=== PATIENT | male | born 1960 | race Caucasian/White ===

== ENCOUNTER → 2017-12-16 | Day surgery (SDC) | payer OTHER ==
[2017-12-13 09:18] LABS: BASOPHILS % 0.3 % (0.0-1.0); EOSINOPHILS # (AUTO) 0.2 (0.0-0.4); EOSINOPHILS % 2.9 % (0.0-6.0); HEMATOCRIT 41.6 % (38.2-49.6); HEMOGLOBIN 14.8 g/dL (14.0-18.0); LYMPHOCYTES # (AUTO) 1.1 (1.0-3.2); LYMPHOCYTES % 17.3 % (18.0-39.1); MEAN CORPUSCULAR HEMOGLOBIN 31.3 pg (28-32); MEAN CORPUSCULAR HGB CONC 35.6 g/dL (31-35); MEAN CORPUSCULAR VOLUME 87.9 fL (81-99); MONOCYTES # (AUTO) 0.6 (0.2-0.8); MONOCYTES % 9.2 % (4.4-11.3); NEUTROPHILS # (AUTO) 4.3 (2.1-6.9); NEUTROPHILS % 70.1 % (38.7-80.0); PLATELET COUNT 177 x10e3/uL (140-360); RED BLOOD COUNT 4.73 x10e6/uL (4.3-5.7); RED CELL DISTRIBUTION WIDTH 12.9 % (11.7-14.4)
[~2017-12-16] MED LIST: ALDACTONE25 MG PO; ASPIRIN325 MG PO; BREO INH; BYETTA5 MCG/0.02 INJ; CARVEDILOL6.25 MG PO; CLARITIN10 MG PO; FENTANYL CITRATE/PF 100MCG/2 ML INJ ONE; FISH OIL 1,0001 EAC2 PO; FLAXSEED OIL1000 MG PO; FLOMAX0.4 MG PO; FLONASE; FUROSEMIDE40 MG PO; GLIPIZIDE ER5 MG PO; GLUCOSAMINE CO1 EACH PO; GLUCOSAMINE-MS1 EAC3 PO; HYOSCYAMINE SULFATE 0.5 MG/ML AMP ONE; ISOSORBIDE PO; METFORMIN HCL850 MG PO; MIDAZOLAM HCL 2 MG/2 ML VIAL ONE; MSM1000 M1 PO; MULTI-VITAMIN1 EACH PO; PANTOPRAZOLE SO40 MG PO; PRAVASTATIN SOD20 MG PO; PROAIR HFA INH8.5 GM INH; PROBIOTIC PO; RAMIPRIL10 MG PO; SINGULAIR10 MG PO; SYMBICORT 16010.2 GM INH; TRIAMCINOLONE A15 G1 TOP; VITAMIN B COMP1 EAC1 PO; VITAMIN C1000 M2 PO; VITAMIN E1000 UNIT PO; XOPENEX HFA15 GM INH; [UNRECOGNIZED DRUG - OTHER] TOP
--- NOTE | 2017-12-16 10:44 | Operative Report ---
DATE OF PROCEDURE: December 16, 2017 REFERRING PHYSICIAN: Dr. Genoveva Law PROCEDURES PERFORMED 1. Esophagogastroduodenoscopy with biopsies. 2. Colonoscopy with polypectomy. INDICATIONS FOR EGD: History of Garcia's esophagus. INDICATIONS FOR COLONOSCOPY: Colorectal cancer screening, personal history of multiple colon polyps, suboptimal prep on previous colonoscopy. MEDICATION: Patient was done under MAC. Please see anesthesiologist's note. PROCEDURE: With the patient in the left lateral decubitus position, the flexible fiberoptic Olympus gastroscope was introduced into the esophagus under direct visualization without any difficulty. Tongues of velvety red mucosa were noted to extend proximally from the GE junction and biopsies were obtained. The scope was then advanced with ease into the stomach. Mucosa overlying the antrum and the body revealed some patchy intense erythema and low-grade to moderate edema, and biopsies were obtained and sent to stain for H. pylori. Pylorus appeared to be of normal contour and shape. It was intubated with ease. The scope was advanced all the way to the 2nd portion of the duodenum. The scope was then withdrawn slowly. Mucosa overlying the proximal 2nd portion and the duodenal bulb appeared to be within normal limits. The scope was then withdrawn back into the stomach and retroflexed. The mucosa overlying the fundus and the cardia appeared to be within normal limits. The scope was then straightened out. It was subsequently withdrawn. Patient tolerated the procedure well. IMPRESSION 1. Garcia's esophagus, biopsies obtained. 2. Gastritis, biopsies obtained and sent to stain for Helicobacter pylori. PLAN: Follow up histology. Continue Protonix 40 mg 1 p.o. q.a.m. a.c. Patient was then turned around. After adequate lubrication of the anal canal, a flexible fiberoptic Olympus colonoscope was inserted into the rectum with ease and advanced all the way to the cecum. An approximately 8 mm sessile polyp was snared from the cecum and polypectomy site was hemoclipped. One polyp was hot biopsied from the ascending colon. One polyp was snared from the transverse colon. One polyp was snared from the descending colon. Some diverticular disease was noted in the sigmoid colon. A total of 15 polyps were removed in the sigmoid colon, 10 by hot biopsy forceps and 5 by snare electrocautery. Three polyps were hot biopsied from the rectum. The scope was then retroflexed into the distal rectum and small internal hemorrhoids were noted, none of which was actively bleeding. The scope was then straightened out. It was subsequently withdrawn. Patient tolerated the procedure well. IMPRESSION 1. Cecal polyp, snared, site prophylactically hemoclipped. 2. Ascending colon polyp, hot biopsied. 3. Transverse colon polyps, snared. 4. Descending colon polyp, snared. 5. Sigmoid colon polyps times 15, 10 hot biopsied and 5 snared. 6. Diverticulosis. 7. Rectal polyps times 3, hot biopsied. 8. Internal hemorrhoids, none actively bleeding. PLAN: Follow up histology. Initiate high-fiber and low-fat diet. Initiate high-fiber supplement. Patient might meet the criteria for hyper-polyposis syndrome. A followup colonoscopy is indicated in 1 year. Job#: [id number] RI cc:GENOVEVA LAW MD
--- OUTSIDE RECORDS SUMMARY | 2017-12-17 12:52 | XMS REPORT | Clinical Summary ---
Author Author [facility] Organization [facility] Address Unknown Phone Unavailable Care Team Providers Care Hemstitching Machine Operator Name Role Phone Christofer Law MD PCP Allergies Active Allergy Reactions Severity Noted Date Comments Empagliflozin Hives High 10/18/2016 Current Medications Prescription Sig. Disp. Refills Start End Date Status Date tamsulosin (FLOMAX) 0.4 Take 0.4 mg by mouth 2 08/21/19 Active mg capsule,extended (two) times a day. 17 release 24hr montelukast (SINGULAIR) Take 10 mg by mouth 07/31/19 Active 10 mg tablet nightly. 17 ONETOUCH ULTRA TEST strip 08/21/19 Active test strips 17 glipiZIDE (GLUCOTROL) 5 Take by mouth daily. 09/09/19 Active MG 24 hr tablet 17 PROAIR HFA 90 Inhale 1 puff every 4 10/04/19 Active mcg/actuation inhaler (four) hours as needed. 17 BYETTA 10 mcg/dose(250 10 mcg 2 (two) times a 10/05/19 Active mcg/mL) 2.4 mL pen day before meals. 17 injector fluticasone-vilanterol Inhale 1 inhalations Active (BREO ELLIPTA) 200-25 daily. mcg/dose blister with device powder for inhalation loratadine (CLARITIN) 10 Take 10 mg by mouth Active mg tablet daily. fluticasone (FLONASE) 50 2 sprays by Each Nare Active mcg/actuation nasal spray route daily. aspirin 325 MG tablet Take 325 mg by mouth Active nightly. pantoprazole (PROTONIX) Take 40 mg by mouth Active 40 MG EC tablet daily. levalbuterol (XOPENEX) INAHLE CONTENTS OF 1 0 11/07/19 Active 1.25 mg/3 mL nebulizer VIAL VIA NEBULIZER Q 6 H 17 solution PRN ramipril (ALTACE) 10 MG TAKE 1 CAPSULE DAILY 90 capsule 3 03/18/20 Active capsule 17 omega-3 acid ethyl esters Take 1 g by mouth 2 (two) Active (LOVAZA) 1 gram capsule times a day. epINEPHrine (EPIPEN) 0.3 0.3 mg as needed. 07/16/19 Active mg/0.3 mL auto-injector 18 furosemide (LASIX) 40 mg Take 1 tablet (40 mg 180 tablet 3 10/24/19 Active tablet total) by mouth 2 (two) 18 times a day. multivitamin with Take 1 tablet by mouth Active minerals tablet daily. B complex with C#20-folic Take by mouth daily. Active acid 1 mg capsule vitamin E 1000 UNIT Take 1,000 Units by mouth Active capsule daily. flaxseed oil oil Active Saccharomyces boulardii Take 250 mg by mouth 2 Active (FLORASTOR) 250 mg (two) times a day. capsule gluc oconnell/chondro oconnell A/vit Take by mouth. Active C/Mn (GLUCOSAMINE 1500 COMPLEX ORAL) carvedilol (COREG) 12.5 Take 1 tablet (12.5 mg 180 tablet 3 11/07/19 11/07/19 Active MG tablet total) by mouth 2 (two) 18 19 times a day. spironolactone Take 1 tablet (25 mg 90 tablet 3 11/13/19 11/13/19 Active (ALDACTONE) 25 MG tablet total) by mouth daily. 18 19 pravastatin (PRAVACHOL) Take 1 tablet (20 mg 90 tablet 3 12/10/19 Active 20 MG tablet total) by mouth nightly. 18 pravastatin (PRAVACHOL) TAKE 1 TABLET DAILY 90 tablet 2 09/11/1902/24 Discontin 20 MG tablet 17 17 ued carvedilol (COREG) 6.25 08/21/19 02/19/20 Discontin MG tablet 17 17 ued metFORMIN XR Take 750 mg by mouth 3 07/16/19 10/24/19 Discontin (GLUCOPHAGE-XR) 750 mg 24 (three) times a day. 17 18 ued hr tablet BD INSULIN PEN NEEDLE UF 08/23/19 10/23/19 Discontin MINI 31 gauge x 3/16" 17 18 ued needle ramipril (ALTACE) 10 MG 09/19/19 03/17/20 Discontin capsule 17 17 ued isosorbide mononitrate 10/03/19 12/31/19 Discontin (IMDUR) 120 MG 24 hr 17 17 ued tablet FLUTICASONE/VILANTEROL Inhale. 02/08/20 Discontin (BREO ELLIPTA INHL) 17 ued isosorbide mononitrate TAKE 3 TABLETS DAILY 270 tablet 1 01/01/20 Discontin (IMDUR) 120 MG 24 hr 17 17 ued tablet triamcinolone Apply topically 2 (two) 10/17/19 Discontin aceton-silicones 0.1 % times a day. 18 ued kit carvedilol (COREG) 6.25 TAKE 1 TABLET DAILY WITH 90 tablet 4 02/19/20 10/23/19 Discontin MG tablet FOOD 17 18 ued furosemide (LASIX) 40 mg Take 1 tablet (40 mg 90 tablet 0 05/06/20 07/15/19 Discontin tablet total) by mouth daily. 17 18 ued pravastatin (PRAVACHOL) TAKE 1 TABLET DAILY 90 tablet 2 05/16/20 Discontin 20 MG tablet 17 18 ued multivitamin with Take 1 tablet by mouth 10/24/19 Discontin minerals tablet daily. 18 ued isosorbide mononitrate TAKE 3 TABLETS DAILY 270 tablet 3 07/02/20 Discontin (IMDUR) 120 MG 24 hr 17 18 ued tablet furosemide (LASIX) 40 mg TAKE 1 TABLET DAILY 90 tablet 2 07/15/19 Discontin tablet 18 18 ued carvedilol (COREG) 6.25 Take 6.25 mg by mouth 2 11/07/19 Discontin MG tablet (two) times a day with 18 ued meals. furosemide (LASIX) 40 mg Take 40 mg by mouth 2 10/24/19 Discontin tablet (two) times a day. 18 ued ISOSORBIDE MONONITRATE Take 30 mg by mouth 10/24/19 Discontin ORAL daily. 18 ued ramipril (ALTACE) 10 MG Take 10 mg by mouth 10/24/19 Discontin capsule daily. 18 ued pravastatin (PRAVACHOL) Take 20 mg by mouth 12/10/19 Discontin 20 MG tablet nightly. 18 ued acetaminophen (TYLENOL) Take 2 tablets (650 mg 15 tablet 0 10/24/19 11/23/19 325 MG tablet total) by mouth every 6 18 18 (six) hours as needed for moderate pain for up to 30 days. minocycline Take 1 capsule (100 mg 14 capsule 0 10/24/19 10/31/19 (MINOCIN,DYNACIN) 100 MG total) by mouth 2 (two) 18 18 capsule times a day for 7 days. metFORMIN XR Take 1 tablet (750 mg 60 tablet 0 10/24/19 11/23/19 (GLUCOPHAGE-XR) 750 mg 24 total) by mouth 2 (two) 18 18 hr tablet times a day with meals for 30 days. potassium 99 mg tablet Take 198 mg by mouth 12/13/19 Discontin daily. 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 Paroxysmal atrial fibrillation 10/16/2016 Type 2 diabetes mellitus 10/16/2016 Heart disease 10/16/2016 Essential hypertension 10/16/2016 Obstructive sleep apnea 10/16/2016 Myocardial infarction 10/16/2016 Encounters Date Type Specialty Care Team Description 12/12/2017 Office Visit Cardiology Genesis Hansen MD Paroxysmal atrial fibrillation (Primary Dx); Cardiomyopathy, unspecified type; Biventricular heart failure; Dilated cardiomyopathy; Chronic systolic heart failure; 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 12/12/2017 Orders Only Cardiology Antwan Shah MD 12/09/2017 Refill Cardiology Jai Gar Med Refill 12/06/2017 Orders Only Cardiology Jai Gar Cardiomyopathy, unspecified type (Primary Dx) 11/27/2017 Telephone Cardiology Jai Gar Results 11/12/2017 Refill Cardiology Jai Gar Results 11/06/2017 Office Visit Cardiology Genesis Hansen MD Paroxysmal atrial fibrillation (Primary Dx); Congestive heart failure, unspecified congestive heart failure chronicity, unspecified congestive heart failure type; Cardiomyopathy, unspecified type; 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; Essential hypertension; Overweight 10/23/2017 Refill Cardiology Jai Gar Med Refill 10/22/2017 Hospital Cardiology Genesis Hansen MD Pre- procedure lab exam; - Encounter Ken Adam, Coronary artery disease 10/23/2017 MD involving cowlitz coronary artery of cowlitz heart without angina pectoris; Cardiomyopathy, unspecified type 10/22/2017 Procedure Pass Procedural Cardiology 10/22/2017 Surgery Procedural Cardiology Ken Adam, Ep aicd implant single MD dual bi vent [44841 (CPT )] 10/22/2017 Orders Only Cardiology Jai Gar 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 (Primary Dx) 10/22/2017 Procedure Pass Procedural Cardiology 10/22/2017 Surgery Procedural Cardiology Genesis Hansen MD Cv right and left heart cath selective angiography lv [16355 (CPT )] 10/21/2017 Orders Only Procedural Cardiology Vivian Sumner Paroxysmal atrial fibrillation 10/16/2017 Office Visit Cardiology Genesis Hansen MD Paroxysmal atrial fibrillation (Primary Dx); Pre-procedure lab exam; 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; Cardiomyopathy, unspecified type; Overweight; Pure hypercholesterolemia 10/07/2017 Office Visit Cardiology Mariusz Langston V., Paroxysmal atrial MD fibrillation (Primary Dx); Essential hypertension; ST elevation myocardial infarction involving left anterior descending (LAD) coronary artery; Biventricular heart failure 09/26/2017 Orders Only Cardiology Jai Gar Cardiomyopathy, unspecified type (Primary Dx) 09/11/2017 Office Visit Cardiology Genesis Hansen MD Heart disease (Primary Dx); Paroxysmal atrial fibrillation; Essential hypertension; Mixed hyperlipidemia; 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 08/05/2017 Orders Only Cardiology Genesis Hansen MD 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 (Primary Dx); Congestive heart failure, unspecified congestive heart failure chronicity, unspecified congestive heart failure type 07/15/2017 Refill Cardiology Genesis Hansen MD Med Refill 06/28/2017 Refill Cardiology Genesis Hansen MD Med Refill 06/07/2017 Hospital Procedural Cardiology Genesis Hansen MD Cardiomyopathy, Encounter unspecified type 06/03/2017 Transcribe Cardiology Genesis Hansen MD Orders 06/03/2017 Orders Only Cardiology Genesis Hansen MD 05/29/2017 Office Visit Cardiology Genesis Hansen MD Paroxysmal atrial fibrillation (Primary Dx); Cardiomyopathy, unspecified type; Heart disease; Biventricular heart failure; Type 2 diabetes mellitus without complication, without long-term current use of insulin; Essential hypertension 05/15/2017 Refill Cardiology Genesis Hansen MD Med Refill 05/06/2017 Refill Cardiology Cong Jai David Med Refill 03/17/2017 Refill Cardiology Genesis Hansen MD Med Refill 02/18/2017 Refill Cardiology Genesis Hansen MD Med Refill 02/07/2017 Office Visit Cardiology Genesis Hansen MD Paroxysmal atrial fibrillation (Primary Dx); Essential hypertension 12/30/2016 Refill Cardiology Genesis Hansen MD Med Refill after 12/16/2016 Family History Medical History Relation Name Comments Diabetes Brother Heart disease Brother Hypertension Brother Diabetes Father Heart disease Father Hypertension Father Hypertension Mother Relation Name Status Comments Brother Father Mother Social History Tobacco Use Types Packs/Day Years Used Date Former Smoker Cigarettes 1 Smokeless Tobacco: Former Chew Quit: User 10/18/2013 Tobacco Cessation: Ready to Quit: Yes Alcohol Use Drinks/Week oz/Week Comments Yes Sex Assigned at Date Recorded Not on file Last Filed Vital Signs Vital Sign Reading Time Taken Blood Pressure 117/61 12/12/2017 12:40 PM CDT Pulse 73 12/12/2017 12:40 PM CDT Temperature 35.7 C (96.2 F) 10/23/2017 7:27 AM CDT Respiratory Rate 18 10/23/2017 9:14 AM CDT Oxygen Saturation 98% 10/23/2017 9:11 AM CDT Inhaled Oxygen - - Concentration Weight 110 kg (242 lb) 12/12/2017 12:37 PM CDT Height 185.4 cm (6' 1") 12/12/2017 12:37 PM CDT Body Mass Index 31.93 12/12/2017 12:37 PM CDT Plan of Treatment Health Maintenance Due Date Last Done Comments DIABETIC FOOT EXAM 1969 DIABETIC RETINAL EYE EXAM 1969 URINE MICROALBUMIN 1969 COLON CANCER SCREENING 2009 SHINGRIX VACCINE (#1) 2009 INFLUENZA VACCINE 02/05/2018 Implants Implanted Type Area Radiation Control Technician Device Expiration Model / Identifier Date Serial / Lot Lead [place] Df4 - [id number] - Cardiac N/A: N/A BSC GUIDANT CRM 02/27/2019 [id number] / [id number] Pacing CHYNA [id number] / Implanted: Qty: 1 on 10/22/2017 by Leads or [id number] Ken Adam MD Electrodes or Accessorie s 52cm Ingevity Mri Active Fixation Cardiac N/A: N/A [place] 09/26/2019 7741 / Pacing Lead - [id number] - [id number] Pacing SCIENTIFIC- CRM [id number] / Implanted: Qty: 1 on 10/22/2017 by Leads or [id number] Ken Adam MD Electrodes or Accessorie s Transvenous Icd Vigilant Juan Nails Df4 Defibrilla N/A: N/A [place] D233 / - [id number] ICD SCIENTIFIC- CRM / Implanted: Qty: 1 on 10/22/2017 by Devices Ken Adam MD Procedures Procedure Name Priority Date/Time Associated Diagnosis Comments ECHOCARDIOGRAM 2D Routine 12/12/2017 Cardiomyopathy, Results for this COMPLETE W MMODE SPECTRAL 5:11 PM CDT unspecified type procedure are in the COLOR DOPPLER (84537) results section. CV PACEMAKER DEFIB ILR Routine 12/12/2017 INTERROGATION 12:00 AM CDT CV PACEMAKER DEFIB ILR Routine 11/06/2017 INTERROGATION 12:00 AM CDT EP AICD IMPLANT SINGLE Routine 10/22/2017 Results for this DUAL BI VENT 7:16 PM CDT procedure are in the results section. CV RIGHT AND LEFT HEART Routine 10/22/2017 Pre-procedure lab exam Results for this CATH SELECTIVE CORONARY 11:12 AM CDT Coronary artery disease procedure are in the LV involving cowlitz coronary results section. artery of cowlitz heart without angina pectoris Cardiomyopathy, unspecified type CV HOLTER MONITOR 48 HOUR Routine 10/16/2017 Paroxysmal atrial Results for this 1:49 PM CDT fibrillation procedure are in the results section. CV STRESS TEST NUCLEAR Routine 10/11/2017 Cardiomyopathy, Results for this CARDIO 4:11 PM CDT unspecified type procedure are in the results section. ECHOCARDIOGRAM 2D Routine 08/13/2017 Coronary artery disease Results for this COMPLETE W MMODE SPECTRAL 10:42 AM INFORMATION MANAGEMENT MANAGER involving cowlitz coronary procedure are in the COLOR DOPPLER (79683) artery of cowlitz heart results section. without angina pectoris Congestive heart failure, unspecified congestive heart failure chronicity, unspecified congestive heart failure type ECHOCARDIOGRAM 2D Routine 05/06/2017 Paroxysmal atrial Results for this COMPLETE W MMODE SPECTRAL 10:45 AM CDT fibrillation procedure are in the COLOR DOPPLER (54147) Essential hypertension results section. after 12/16/2016 Results * Echocardiogram complete w contrast and 3D if needed (12/12/2017 5:11 PM) Specimen Performing Laboratory [facility] [address] [place] [address] Narrative [facility] Echocardiography Report Pat.Name:FELA BENZ LPat.ID:[id number] St.Date: 12/12/2017 Refer.MD:GENESIS HANSEN MD Exam Time: 4:05:00 PMStudy Type:Routine Echo Height:73inWeight:242lb BSA: 2.34 m2 DOBAge:1960 ,57Y Sex: MALEBP: 117/61 HR:86 bpm Sonogrphr: LIZZ Colbert FASE Pat. Stat.:OutpatientRoom:[place] [address] Study Status:Final Echo Event ID:[id number] Order ID:[id number] Reason for Study:Cardiomyopathy, Coronary Artery Disease Procedures:2D Echo, Colorflow Doppler, Intravenous Definity Contrast Race:C SUMMARY: RV size is mildly enlarged. RV systolic function is mild to moderately depressed. LV size is moderately enlarged. LV EF is severely depressed. Wall motion abnormalities present. FINDINGS: LV: LV size is moderately enlarged. LV EF is severely depressed. EstimatedEF is 25-29%. RV: RV size is mildly enlarged. A pacemaker wire is seen in the RV.RV systolic function is mild to moderately depressed. LA: LA volume is severely enlarged. RA: RA volume is enlarged. A pacemaker wire is seen. AO: Aortic root diameter is normal. JACKELIN: No pericardial effusion. AV: Focal calcification of AV leaflets. MV: Dilated annulus with poor coaptation. Mild to moderate functionalmitral regurgitation. PV: No structural PV abnormalities noted. TV: No structural TV abnormalities noted. Mild tricuspid regurgitation Ralph: Diastolic dysfunction Grade II (Moderate): Impaired relaxationwith elevated LV filling pressures. Other:Estimated PA systolic pressure is 48 mmHg, assuming a mean RAPof 5 mmHg. MEASUREMENTS: 2D Parasternal [place] LVOT 2.1 cmLA Ds 5 cm LVIDd6.2 cmIndex 2.6 cm/m Ao An2.1 cm LVIDs5.6 cmAo Rtd 3.6 cm Index1.5 cm/m LV%fs 12.5 % LV Elfz250.1 g(122-174) IVSd 0.9 cmRWT 0.3 LVPWd1.1 cm LA Sng Plane LA Area 32.1 cm2(8.8-23.4) LA Vol 126.9 ml Index54.2 ml/m LA LngAx 6.8 cm WALL MOTION: RESTING WALL MOTION: Mid Inferolateral, Mid Anterolateral, Apical Lateral smith are akinetic.Basal Anterior, Basal Anteroseptal, Basal Inferoseptal, Basal Inferior, Basal Inferolateral, Basal Anterolateral, Mid Anterior, Mid Anteroseptal, Mid Inferoseptal, Mid Inferior, Apical Anterior, Apical Septal, Apical Inferior, Apical smith are hypokinetic. Wall Index=2.2 Signed 12/12/2017 05:47 PM Joshua Crawford MD Procedure Note Interface, Radiology Results In - 12/12/2017 5:47 PM CDT [facility] Echocardiography Report Pat.Name: FELA BENZ Pat.ID: [id number] St.Date: 12/12/2017 Refer.MD: GENESIS HANSEN MD Exam Time: 4:05:00 PM Study Type:Routine Echo Height: 73in Weight: 242lb BSA: 2.34 m2 Age: 9 1960,57Y Sex: MALE BP: 117/61 HR: 86 bpm Sonogrphr: LIZZ Colbert FASE Pat. Stat.:Outpatient Room: [place] [address] Study Status:Final Echo Event ID:[id number] Order ID: [id number] Reason for Study:Cardiomyopathy, Coronary Artery Disease Procedures:2D Echo, Colorflow Doppler, Intravenous Definity Contrast Race: C SUMMARY: RV size is mildly enlarged. RV systolic function is mild to moderately depressed. LV size is moderately enlarged. LV EF is severely depressed. Wall motion abnormalities present. FINDINGS: LV: LV size is moderately enlarged. LV EF is severely depressed. Estimated EF is 25-29%. RV: RV size is mildly enlarged. A pacemaker wire is seen in the RV. RV systolic function is mild to moderately depressed. LA: LA volume is severely enlarged. RA: RA volume is enlarged. A pacemaker wire is seen. AO: Aortic root diameter is normal. JACKELIN: No pericardial effusion. AV: Focal calcification of AV leaflets. MV: Dilated annulus with poor coaptation. Mild to moderate functional mitral regurgitation. PV: No structural PV abnormalities noted. TV: No structural TV abnormalities noted. Mild tricuspid regurgitation Ralph: Diastolic dysfunction Grade II (Moderate): Impaired relaxation with elevated LV filling pressures. Other: Estimated PA systolic pressure is 48 mmHg, assuming a mean RAP of 5 mmHg. MEASUREMENTS: 2D Parasternal Long [place] LVOT 2.1 cm LA Ds 5 cm LVIDd 6.2 cm Index 2.6 cm/m Ao An 2.1 cm LVIDs 5.6 cm Ao Rtd 3.6 cm Index 1.5 cm/m LV%fs 12.5 % LV Mass 278.1 g (122-174) IVSd 0.9 cm RWT 0.3 LVPWd 1.1 cm LA Sng Plane LA Area 32.1 cm2 (8.8-23.4) LA Vol 126.9 ml Index 54.2 ml/m LA LngAx 6.8 cm WALL MOTION: RESTING WALL MOTION: Mid Inferolateral, Mid Anterolateral, Apical Lateral smith are akinetic. Basal Anterior, Basal Anteroseptal, Basal Inferoseptal, Basal Inferior, Basal Inferolateral, Basal Anterolateral, Mid Anterior, Mid Anteroseptal, Mid Inferoseptal, Mid Inferior, Apical Anterior, Apical Septal, Apical Inferior, Apical smith are hypokinetic. Wall Index=2.2 Signed 12/12/2017 05:47 PM Joshua Crawford MD * ECG 12 lead (12/12/2017 12:45 PM) Only the most recent of 7 results within the time period is included. Component Value Ref Range Ventricular rate 74 Atrial rate 74 OR interval 144 QRSD interval 108 QT interval 404 QTC interval 448 P axis 1 161 QRS axis 1 -26 T wave axis 62 EKG impression Unusual P axis, possible ectopic atrial rhythm with occasional premature ventricular complexes-Inferior infarct , age undetermined-Abnormal ECG-In automated comparison with ECG of 06-NOV-2017 16:12,-Ectopic atrial rhythm has replaced Sinus rhythm-QRS axis shifted left- Specimen Performing Laboratory [facility] [address] [place] [address] * CV pacemaker defib or ilr interrogation (12/12/2017) * Basic metabolic panel (12/09/2017 8:23 AM) Only the most recent of 7 results within the time period is included. Component Value Ref Range Glucose 130 65 - 139 mg/dL Comment: Non-fasting reference interval BUN, whole blood 31 (H) 7 - 25 mg/dL Creatinine 1.33 0.70 - 1.33 mg/dL Comment: For patients >49 years of age, the reference limit for Creatinine is approximately 13% higher for people identified as -Moroccan. EGFR Non-Afr. Moroccan 59 (L) > OR=60 mL/min/1.73m2 EGFR 68 > OR=60 mL/min/1.73m2 BUN/creatinine ratio 23 (H) 6 - 22 (calc) Sodium 138 135 - 146 mmol/L Potassium 4.0 3.5 - 5.3 mmol/L Chloride 95 (L) 98 - 110 mmol/L CO2 30 20 - 31 mmol/L Calcium 10.0 8.6 - 10.3 mg/dL Specimen Performing Laboratory [facility] Narrative FASTING:NO FASTING: NO * B natriuretic peptide (11/07/2017 9:17 AM) Only the most recent of 3 results within the time period is included. Component Value Ref Range BNP 172 (H) <100 pg/mL Comment: BNP levels increase with age in the general population with the highest values seen in individuals greater than 75 years of age. Reference: J. Am. Sujata. Cardiol. 2002; 40:976-982. Specimen Performing Laboratory [facility] Narrative FASTING:NO FASTING: NO * CV pacemaker defib or ilr interrogation (11/06/2017) * POC glucose (10/23/2017 7:24 AM) Only the most recent of 4 results within the time period is included. Component Value Ref Range POC glucose 163 (H) 65 - 99 mg/dL Comment: [facility] Notified RN Meter ID: [id number] Inside Sales Account Representative: Maame Carrion Specimen Performing Laboratory [facility] DEPARTMENT OF PATHOLOGY AND GENOMIC MEDICINE [address] [place] [id number] * XR Chest 1 Vw Portable (10/23/2017 1:00 AM) Only the most recent of 2 results within the time period is included. Specimen Performing Laboratory [facility] [address] [place] [address] Narrative EXAMINATION:XR CHEST 1 VW PORTABLE CLINICAL HISTORY:Pneumothorax COMPARISON:10/22/2017 IMPRESSION: Cardiomediastinal silhouette is within normal limits. Left-sided cardiac device is unchanged. Mild vascular congestion/edema. No effusions or pneumothorax. No acute osseous abnormalities. [facility]-[id number] Procedure Note Interface, Radiology Results Incoming - 10/23/2017 1:07 AM CDT EXAMINATION: XR CHEST 1 VW PORTABLE CLINICAL HISTORY: Pneumothorax COMPARISON: 10/22/2017 IMPRESSION: Cardiomediastinal silhouette is within normal limits. Left-sided cardiac device is unchanged. Mild vascular congestion/edema. No effusions or pneumothorax. No acute osseous abnormalities. [facility]-[id number] * Cv electrophysiology procedure (10/22/2017 7:16 PM) Specimen Performing Laboratory [facility] [address] [place] [address] Narrative ELECTROPHYSIOLOGY SERVICE OPERATIVE REPORT PROCEDURE: OPERATION PERFORMED: Implantation dual chamber ICD Patient had moderate sedation administered in the form of Versed and Fentanyl. I was present during the induction and completion of anesthesia. A total of 60 minutes of sedation time Grafts/Implants: Implant Name Type Inv. Item Serial No. Radiation Control Technician Lot No. LRB No. Used Action LEAD RELIANCE GORE DF4 - [id number] Cardiac Pacing Leads or Electrodes or Accessories LEAD RELIANCE GORE DF4 [id number] [facility] [employer]UIDANT CRM CHYNA [id number] N/A 1 Implanted 52CM INGEVITY MRI ACTIVE FIXATION PACING LEAD - [id number] Cardiac Pacing Leads or Electrodes or Accessories 52CM INGEVITY MRI ACTIVE FIXATION PACING LEAD [id number] [employer] [facility] [id number] N/A 1 Implanted TRANSVENOUS ICD VIGILANT EL DR FULLER4 - [id number] Defibrillator ICD Devices TRANSVENOUS ICD VIGILANT EL DR FULLER4 [facility] N[place]A 1 Implanted ATTENDING SURGEON: Ken Adam MD CCEP FELLOW: None ANESTHESIA: Versed, lidocaine and fentanyl ESTIMATED BLOOD LOSS: < 20 cc COMPLICATIONS: None. TIME OUT: Time out was completed with verification of the correct patient identity, procedure to be performed, procedure site and implanted equipment. INDICATION FOR PROCEDURE:Briefly, the patient is a 57 year old Cardiomyopathy with Narrow QRS with a history of severe LV dysfunction on optimal medical therapy.The patient was seen and examined by an electrophysiology staff physician and deemed appropriate for implantation of a ICD. PROCEDURE AND FINDINGS:The patient was brought to the electrophysiology laboratory at the [facility].Informed consent was given by the patient prior to the procedure and confirmed.Intravenous prophylactic antibiotics were administered prior to the procedure.After the site of implantation was prepped and drapped in the usual sterile fashion and after adequate anesthesia was given, the skin was infiltrated with 1% lidocaine and 1% bupivicaine 50/50 mixture.The skin was incised with a #10 scalpel.Blunt and electrosurgical dissection was carried out to the level of the prepectoral fascia with careful attention paid to hemostasis.A pocket to house the pulse generator was formed between the prepectoral fascia and subcutaneous fat with blunt and electrosurgical dissection.The pocket was copiously irrigated with antibiotic containing normal saline and subsequently observed.Once adequate hemostasis was confirmed within the pocket, venous access was obtained.The Axilary vein was accessed via seldinger technique.J tip 0.035 inch guide wires were introduced and their course throught the venous system was confirmed by their presence under fluoroscopy in the inferior vena. RIGHT VENTRICULAR LEAD: A7 Urdu peel away sheath was brought to the field and placed into the venous system via over the wire technique.The right ventricular lead was placed via this sheath into the right ventricular apical location. Adequate sensing and threshold parameters were obtained.The lead was attached via active fixation.There was no evidence of diaphragmatic stimulation at 10 V output.The peel away sheath was removed and the lead collar was advanced to the pectoral muscle and sutured with ethabond suture.Tug testing of this lead confirmed stability of the lead and the length of the lead's slack was assesed as optimal with fluoroscopy. RIGHT ATRIAL LEAD: A 7 Urdu peel away sheath was brought to the field and placed into the venous system via over the wire technique.The right atrial lead was placed via this sheath into the right atrial lateral location.Adequate sensing and threshold parameters were obtained.The lead was attached via activation fixation.There was no evidence of diaphragmatic stimulation at 10 V output.The peel away sheath was removed and the lead collar was advanced to the pectoral muscle and sutured with ethabond suture.Tug testing of this lead confirmed stability of the lead and the length of the lead's slack was assesed as optimal with fluoroscopy. The lead tips for all leads were cleaned and dried thoroughly.The leads were attached to the appropriate ports on the pulse generator.Tug testing was perfomed on all connections.The device and leads were placed within the pocket such that the coiled redundant leads were posterior to the pulse generator. The pulse generator was then sutured to the fascia in a medial location within the pocket using Vycril suture.The pocket was closed with 3 layers of continuous suture using 2 Vicryl, 3 Vicryl and Dermabond. Sterile dressing were applied to the wound followed by a pressure dressing. MEASURED DEVICE DATA: Atrial lead sensin.4 mV impedance: 597 Ohms Threshold: 0.6 Volts at 0.4 ms RV lead sensin mV pacing impedance:586 Ohms Threshold: 0.5 Volts at 0.5 ms PROGRAMMED PARAMETERS: Mode: DDDR CONCLUSION:Succesful implantation of dual chamber ICD system. RECOMMENDATION: 1. CXR 2. ANTIBIOTICS 3. Wound Check in one week at the [facility]. 4. Compression bandage to be removed in AM by our service.Patient to be instructed not to touch the wound or get wound wet for the period of one week.Patient instructed not to flex, extend, or abduct the shoulder joint ipsilateral to implantation more than 90 degrees for a period of 6 weeks.Movement of the shoulder below this threshold is encouraged. * ECG Pre/Post Op (10/22/2017 4:45 PM) Component Value Ref Range Ventricular rate 93 Atrial rate 93 OR interval 150 QRSD interval 104 QT interval 400 QTC interval 497 P axis 1 60 QRS axis 1 89 T wave axis 57 EKG impression Normal sinus rhythm-Possible Left atrial enlargement-Septal infarct , age undetermined-Abnormal ECG-In automated comparison with ECG of 16-OCT-2017 12:20,-Septal infarct is now present- Specimen Performing Laboratory [facility] [address] [place] [address] * Cv pathology laboratory technologist procedure (10/22/2017 11:12 AM) Specimen Performing Laboratory [facility] [address] [place] [address] Narrative Right heart filling pressure is normal. Pulmonary hypertension is mild. Wedge pressure is moderate. Cardiac output is normal. Intracardiac shunt is not detected. Non-obstructive CAD. Elevated Wedge and LVEDP consistent with the diagnosis of heart failure. Cardiac output is preserved. Recommendations: Aggressive risk factor modification for CAD. Aggressive diuresis. I was physically present for the critical portions of all procedures performed during this episode of care. Genesis Hansen MD * Partial thromboplastin time, activated (10/16/2017 2:28 PM) Component Value Ref Range PTT 27 22 - 34 sec Comment: This test has not been validated for monitoring unfractionated heparin therapy. For testing that is validated for this type of therapy, please refer to the Heparin Anti-Xa assay (test code 03735). For additional information, please refer to http://Zirtual.[employer]/faq/WCS854 (This link is being provided for informational/educational purposes only.) Specimen Performing Laboratory [facility] Narrative FASTING:NO FASTING: NO * Prothrombin time with INR (10/16/2017 2:28 PM) Component Value Ref Range INR 1.1 Comment: Reference Range 0.9-1.1 Moderate-intensity Warfarin Therapy 2.0-3.0 Higher-intensity Warfarin Therapy 3.0-4.0 Prothrombin time 11.7 (H) 9.0 - 11.5 sec Comment: For more information on this test, go to: http://Zirtual.[employer]/faq/QIQ483 Specimen Performing Laboratory [facility] Narrative FASTING:NO FASTING: NO * CBC with platelet and differential (10/16/2017 2:28 PM) Only the most recent of 2 results within the time period is included. Component Value Ref Range WBC 5.8 3.8 - 10.8 Thousand/uL RBC 4.35 4.20 - 5.80 Million/uL HGB 13.7 13.2 - 17.1 g/dL HCT 39.6 38.5 - 50.0 % MCV 91.0 80.0 - 100.0 fL MCH 31.5 27.0 - 33.0 pg MCHC 34.6 32.0 - 36.0 g/dL RDW 13.1 11.0 - 15.0 % Platelet count 235 140 - 400 Thousand/uL MPV 9.8 7.5 - 12.5 fL Neutrophils, absolute 4,008 1,500 - 7,800 cells/uL Lymphocytes, absolute 1,067 850 - 3,900 cells/uL Monocytes, absolute 534 200 - 950 cells/uL Eosinophils, absolute 174 15 - 500 cells/uL Basophils, absolute 17 0 - 200 cells/uL Neutrophils 69.1 % Lymphocytes 18.4 % Monocytes 9.2 % Eosinophils 3.0 % Basophils + RC 0.3 % Specimen Performing Laboratory [facility] Narrative FASTING:NO FASTING: NO * CV Holter monitor 48 hour (10/16/2017 1:49 PM) Component Value Ref Range Hookup Date [id number] Hookup Time 132143 Acquisition Duration 846911 # of Ventricular Beats in 78 Runs # OF LONGEST VENTRICULAR 26 BEATS # of Supraventricular 3 Beats in Runs # of Longest 3 Supraventricular Beats Max Heart Rate 185 Min Heart Rate 59 Longest RR 1.320 Diagnosis Sinus rhythm-Occasional Premature supraventricular complexes and Premature ventricular complexes-There is a 26 best run of monomorphic ventricular tachycardia- Specimen Performing Laboratory [facility] [address] [place] [address] * Cv stress test (10/11/2017 4:11 PM) Component Value Ref Range Resting HR 90 Resting BP 127 Peak MET Achieved 1.0 Protocol Name Lexiscan Time in Exercise Phase 00:00:17 Max Systolic BP 127 Max Diastolic BP 73 Max Heart Rate 107 Max Predicted Heart Rate 162 Target HR Formula (220 - Age)*85% Test Indication CARDIOMYOPATHY Arrhy During Ex ECG Interp Before EX ECG Interp During Ex Ex Summary Comment Overall HR Response to Exercise Overall BP Response To Exercise Reason for Termination Test complete Stress Test Impression Waveform interpreted in report associated with image study. No interpretation is provided as part of this Stress ECG report.--Electronically Signed By Genesis Montes MD ([id number]), purchase request editor Vivian Sumner ([id number]) on 10/15/2017 8:36:29 AM Specimen Performing Laboratory [facility] [address] [place] [address] * Nm myocardial perfusion (10/11/2017 4:11 PM) Specimen Performing Laboratory [facility] [address] [place] [address] Narrative Nuclear Cardiology Laboratory [address] [facility], [address] [place] [address] Yfj: [phone] Myocardial Perfusion Imaging Report Pat.Name:FLEA BENZ LPat.ID:[id number] St.Date: 10/11/2017Refer.MD:GENESIS HANSEN MD Exam Time: 10:32:00 AM Study Type:Myocardial Perfusion Imaging Height:73inWeight:248lb BSA: 2.36 m2 DOBAge:1960 ,57Y Sex: MALE Nuclear Tech:Trae Fortune [facility] Nuclear Event ID:[id number] Order ID:[id number] Reason for Study:Abnormal EKG*, CAD, unspecified*, cardiomyopathy, Unsp. (I42.9) History / Clinical:CAD, HTN, DM, a-fib Procedures:Single Day Stress / Rest Race: Clinical Symptoms:Regadenoson SUMMARY: BASELINE ECGNormal Sinus Rhythm, [place], ILBBB, Prolonged QT STRESS TEST RESULTS Maximal Predicted HR162 beats/minute 85% Maximal Predicted HR 137 beats/minute Stress Test Duration1 minutes 00 seconds Resting Heart Rate90 beats/minute Maximal Heart Lqcc371 beats/minute Resting Blood Wlslzlzg817/72 mmHg Maximal Blood Zjoohkrv659/73 mmHg % Maximal Heart Rate Achieved 66% Symptoms During TestChest tightness Reason for Stopping TestAs per regadenoson protocol Maximal ST-segment shiftNone Stress-Induced Arrhythmias None Ischemic electrocardiographic changes (ST-segment depression) did not occur at peak regadenoson stress._. STRESS TEST INTERPRETATION Normal maximal regadenoson stress test. SCINTIGRAPHIC RESULTS Perfusion Defect Size (% LV) 25% Total 0% Morapzbv27% Scar Left Ventricular Perfusion Results There is a mild apical, apical-septal, inferoapical, mid inferior and basal inferior perfusion defect during stress which remains unchanged with rest imaging.There is a moderate mid inferolateralperfusion defect during stress which remains unchanged with rest imaging. Gated SPECT Results The post stress left ventricular ejection fraction is 31% with akinesis of all hypoperfused segments. Left ventricular end-diastolic volume is 284 ml; end-systolic volume is195 ml.The left ventricle is severely enlarged at stress and rest.The right ventricle is enlarged with moderate to severe hypokinesis. Conclusion Abnormal regadenoson Tc-99m tetrofosmin myocardial perfusion study compatible with scar in the right and circumflex coronary artery vascular territories. The apical perfusion defect could be due to mid-distal LAD stenosis. The LVEF is severely depressed.LV and severe RV hypertrophy are present.Severe LV and RV dilation are present. Comments The study results indicate a very high annual risk for a cardiac or non-fatal myocardial infarction. Study Quality/Artifacts The study quality is good. Comparison to Previous Study None available. Signed 10/12/2017 10:13 AM Genesis Montes MD Procedure Note Interface, Radiology Results In - 10/12/2017 10:13 AM CDT Nuclear Cardiology Laboratory [address] [place] [address], [address] [place], [place] [id number] Myocardial Perfusion Imaging Report Pat.Name: FELA BENZ Pat.ID: [id number] St.Date: 10/11/2017 Refer.MD: GENESIS HANSEN MD Exam Time: 10:32:00 AM Study Type:Myocardial Perfusion Imaging Height: 73in Weight: 248lb BSA: 2.36 m2 Age: 9 1960,57Y Sex: MALE Nuclear Tech:JULIAN OswaldMT, [facility]) Nuclear Event ID:[id number] Order ID: [id number] Reason for Study:Abnormal EKG*, CAD, unspecified*, cardiomyopathy, Unsp. (I42.9) History / Clinical:CAD, HTN, DM, a-fib Procedures:Single Day Stress / Rest Race: Clinical Symptoms:Regadenoson SUMMARY: BASELINE ECG Normal Sinus Rhythm, Rightward [place], ILBBB, Prolonged QT STRESS TEST RESULTS Maximal Predicted HR 162 beats/minute 85% Maximal Predicted HR 137 beats/minute Stress Test Duration 1 minutes 00 seconds Resting Heart Rate 90 beats/minute Maximal Heart Rate 107 beats/minute Resting Blood Pressure 127/72 mmHg Maximal Blood Pressure 127/73 mmHg % Maximal Heart Rate Achieved 66% Symptoms During Test Chest tightness Reason for Stopping Test As per regadenoson protocol Maximal ST-segment shift None Stress-Induced Arrhythmias None Ischemic electrocardiographic changes (ST-segment depression) did not occur at peak regadenoson stress. _. STRESS TEST INTERPRETATION Normal maximal regadenoson stress test. SCINTIGRAPHIC RESULTS Perfusion Defect Size (% LV) 25% Total 0% Ischemia 25% Scar Left Ventricular Perfusion Results There is a mild apical, apical-septal, inferoapical, mid inferior and basal inferior perfusion defect during stress which remains unchanged with rest imaging. There is a moderate mid inferolateral perfusion defect during stress which remains unchanged with rest imaging. Gated SPECT Results The post stress left ventricular ejection fraction is 31% with akinesis of all hypoperfused segments. Left ventricular end-diastolic volume is 284 ml; end-systolic volume is 195 ml. The left ventricle is severely enlarged at stress and rest. The right ventricle is enlarged with moderate to severe hypokinesis. Conclusion Abnormal regadenoson Tc-99m tetrofosmin myocardial perfusion study compatible with scar in the right and circumflex coronary artery vascular territories. The apical perfusion defect could be due to mid-distal LAD stenosis. The LVEF is severely depressed. LV and severe RV hypertrophy are present. Severe LV and RV dilation are present. Comments The study results indicate a very high annual risk for a cardiac or non-fatal myocardial infarction. Study Quality/Artifacts The study quality is good. Comparison to Previous Study None available. Signed 10/12/2017 10:13 AM Genesis Montes MD * Lipid panel (09/12/2017 8:30 AM) Component Value Ref Range Cholesterol, total 119 <200 mg/dL HDL cholesterol 27 (L) >40 mg/dL Triglycerides 89 <150 mg/dL LDL cholesterol 75 mg/dL (calc) calculated Comment: Reference range: <100 Desirable range <100 mg/dL for patients with CHD or diabetes and <70 mg/dL for diabetic patients with known heart disease. LDL-C is now calculated using the Rico-Acosta calculation, which is a validated novel method providing better accuracy than the Friedewald equation in the estimation of LDL-C. Rico SS et al. [place]. 2013;310(68): 1933-8138 (http://education.[employer]/faq/ARL859) Cholesterol/HDL ratio 4.4 <5.0 (calc) Non-HDL cholesterol 92 <130 mg/dL (calc) Comment: For patients with diabetes plus 1 major ASCVD risk factor, treating to a non-HDL-C goal of <100 mg/dL (LDL-C of <70 mg/dL) is considered a therapeutic option. Specimen Performing Laboratory [facility] Narrative FASTING:YES FASTING: YES * Comprehensive metabolic panel (09/12/2017 8:30 AM) Component Value Ref Range Glucose 160 (H) 65 - 99 mg/dL Comment: Fasting reference interval For someone without known diabetes, a glucose value >125 mg/dL indicates that they may have diabetes and this should be confirmed with a follow-up test. BUN, whole blood 23 7 - 25 mg/dL Creatinine 1.04 0.70 - 1.33 mg/dL Comment: For patients >49 years of age, the reference limit for Creatinine is approximately 13% higher for people identified as -Moroccan. EGFR Non-Afr. Moroccan 79 > OR=60 mL/min/1.73m2 EGFR 91 > OR=60 mL/min/1.73m2 BUN/creatinine ratio NOT APPLICABLE 6 - 22 (calc) Sodium 136 135 - 146 mmol/L Potassium 4.2 3.5 - 5.3 mmol/L Chloride 100 98 - 110 mmol/L CO2 28 20 - 31 mmol/L Calcium 9.4 8.6 - 10.3 mg/dL Protein 7.3 6.1 - 8.1 g/dL Albumin, S 4.4 3.6 - 5.1 g/dL Globulin, total 2.9 1.9 - 3.7 g/dL (calc) Albumin/globulin ratio 1.5 1.0 - 2.5 (calc) Total bilirubin 0.5 0.2 - 1.2 mg/dL Alkaline phosphatase 42 40 - 115 U/L AST 15 10 - 35 U/L ALT 16 9 - 46 U/L Specimen Performing Laboratory [facility] Narrative FASTING:YES FASTING: YES * Echocardiogram complete w contrast and 3D if needed (08/13/2017 10:42 AM) Specimen Performing Laboratory [facility] [address] [place] [address] Narrative [facility] Echocardiography Report Pat.Name:FELA BENZ LPat.ID:[id number] St.Date: 08/13/2017 Refer.MD:GENESIS HANSEN MD Exam Time: 9:59:00 AMStudy Type:Routine Echo Height:73inWeight: 254.47lb BSA: 2.39 m2 DOBAge:1960 ,57Y Sex: MALEBP: 114/77 HR:102 bpm Sonogrphr: LIZZ Miller Pat. Stat.:OutpatientStudy Status:Final Echo Event ID:[id number] Order ID:[id number] Reason for Study:Coronary Artery Disease Procedures:2D Echo, Colorflow Doppler, Intravenous Definity Contrast Race: SUMMARY: LV size is severely enlarged. LV EF is severely depressed. RV size is moderately enlarged. RV systolic function is mild to moderately depressed. Moderate mitral regurgitation. Wall motion abnormalities present. FINDINGS: LV: LV size is severely enlarged. LV EF is severely depressed. EstimatedEF is 20-24%. RV: RV size is moderately enlarged. RV systolic function is mild tomoderately depressed. LA: LA volume is moderately enlarged. RA: RA volume is moderately enlarged. AO: Aortic root diameter is normal. JACKELIN: No pericardial effusion. AV: No structural AV abnormalities noted. MV: Dilated annulus. Moderate mitral regurgitation. Etiology of MRis secondary to LV dysfunction and remodeling. Eccentric mitralregurgitant jet directed posteriorly. PV: No structural PV abnormalities noted. TV: No structural TV abnormalities noted. Mild tricuspid regurgitation Ralph: LV relaxation is impaired. Pulmonary vein velocity is consistentwith increased left atrial pressures. Other:Estimated PA systolic pressure is 46 mmHg, assuming a mean RAPof 10 mmHg. MEASUREMENTS: 2D Parasternal Long [place] LVOT 2.2 cmLA Ds 4.6 cm LVIDd6.5 cmIndex 2.7 cm/m Ao An2.2 cm LVIDs5.5 cmAo Rtd 3.9 cm Index1.6 cm/m LV%fs 11 % LV Pink699.9 g(122-174) IVSd 1.2 cmLVM Index 124.6 g/m2 LVPWd1 cmRWT 0.3 LA Sng Plane LA Area 28.9 cm2(8.8-23.4) LA Vol 105.1 ml Index44 ml/m LA LngAx 6.3 cm RA Sng Plane RA Area 30.4 cm2(8.3-19.5) RA Vol 125.2 ml Index52.4 ml/m RA LngAx 6 cm DOPPLER LVOT For Flow LVOT Area3.8 cm2 LVOT SV 51.4 ml LVOTpkVel 85.3 cm/sHR 100.7 bpm LVOTpkPG 2.9 mmHgLVOT CO 5.2 l/min LVOTmnPG 1.4 mmHgLVOT CI 2.2 l/m/m2 LVOT TVI13.5 cm WALL MOTION: RESTING WALL MOTION: Basal Inferoseptal, Basal Inferior, Basal Inferolateral, Mid Inferior, Mid Inferolateral smith are akinetic.Basal Anterior, Basal Anteroseptal, Basal Anterolateral, Mid Anterior, Mid Anteroseptal, Mid Inferoseptal, Mid Anterolateral, Apical Anterior, Apical Septal, Apical Inferior, Apical Lateral, Apical smith are hypokinetic. Wall Index=2.3 Signed 08/14/2017 11:00 AM Joshua Crawford MD Procedure Note Interface, Radiology Results In - 08/14/2017 11:01 AM INFORMATION MANAGEMENT MANAGER [facility] Echocardiography Report Pat.Name: FELA BENZ Pat.ID: [id number] .Date: 08/13/2017 Refer.MD: GENESIS HANSEN MD Exam Time: 9:59:00 AM Study Type:Routine Echo Height: 73in Weight: 254.47lb BSA: 2.39 m2 Age: 9 1960,57Y Sex: MALE BP: 114/77 HR: 102 bpm Sonogrphr: LIZZ Miller Pat. Stat.:Outpatient Study Status:Final Echo Event ID:[id number] Order ID: [id number] Reason for Study:Coronary Artery Disease Procedures:2D Echo, Colorflow Doppler, Intravenous Definity Contrast Race: SUMMARY: LV size is severely enlarged. LV EF is severely depressed. RV size is moderately enlarged. RV systolic function is mild to moderately depressed. Moderate mitral regurgitation. Wall motion abnormalities present. FINDINGS: LV: LV size is severely enlarged. LV EF is severely depressed. Estimated EF is 20-24%. RV: RV size is moderately enlarged. RV systolic function is mild to moderately depressed. LA: LA volume is moderately enlarged. RA: RA volume is moderately enlarged. AO: Aortic root diameter is normal. JACKELIN: No pericardial effusion. AV: No structural AV abnormalities noted. MV: Dilated annulus. Moderate mitral regurgitation. Etiology of MR is secondary to LV dysfunction and remodeling. Eccentric mitral regurgitant jet directed posteriorly. PV: No structural PV abnormalities noted. TV: No structural TV abnormalities noted. Mild tricuspid regurgitation Ralph: LV relaxation is impaired. Pulmonary vein velocity is consistent with increased left atrial pressures. Other: Estimated PA systolic pressure is 46 mmHg, assuming a mean RAP of 10 mmHg. MEASUREMENTS: 2D Parasternal Long [place] LVOT 2.2 cm LA Ds 4.6 cm LVIDd 6.5 cm Index 2.7 cm/m Ao An 2.2 cm LVIDs 5.5 cm Ao Rtd 3.9 cm Index 1.6 cm/m LV%fs 11 % LV Mass 297.9 g (122-174) IVSd 1.2 cm LVM Index 124.6 g/m2 LVPWd 1 cm RWT 0.3 LA Sng Plane LA Area 28.9 cm2 (8.8-23.4) LA Vol 105.1 ml Index 44 ml/m LA LngAx 6.3 cm RA Sng Plane RA Area 30.4 cm2 (8.3-19.5) RA Vol 125.2 ml Index 52.4 ml/m RA LngAx 6 cm DOPPLER LVOT For Flow LVOT Area 3.8 cm2 LVOT SV 51.4 ml LVOTpkVel 85.3 cm/s HR 100.7 bpm LVOTpkPG 2.9 mmHg LVOT CO 5.2 l/min LVOTmnPG 1.4 mmHg LVOT CI 2.2 l/m/m2 LVOT TVI 13.5 cm WALL MOTION: RESTING WALL MOTION: Basal Inferoseptal, Basal Inferior, Basal Inferolateral, Mid Inferior, Mid Inferolateral smith are akinetic. Basal Anterior, Basal Anteroseptal, Basal Anterolateral, Mid Anterior, Mid Anteroseptal, Mid Inferoseptal, Mid Anterolateral, Apical Anterior, Apical Septal, Apical Inferior, Apical Lateral, Apical smith are hypokinetic. Wall Index=2.3 Signed 08/14/2017 11:00 AM Joshua Crawford MD * Cv cta coronary arteries w contrast (06/07/2017 1:28 PM) Specimen Performing Laboratory [facility] [address] Nuclear Cardiology and Cardiac CT [address] [place] [address] CTA Coronary Arteries Report Pat.Name:Carlos Eduardo BENZ.ID:[id number] .Date: 06/07/2017 Refer.MD:GENESIS HANSEN MD Exam Time: 1:17:00 PMStudy Type:CTA Coronary Arteries Height:73inWeight: 247.48lb BSA: 2.36 m2 DOBAge:1960 ,57Y Sex: MALEBP: 98/65 HR:98 bpm Nuclear Tech:Sarai Easley RT(R)(CT) Pat. Stat.:Outpatient CPT - 4: CCTA w Thoracic Aorta (NonCongenital) [id number] Nuclear Event ID:[id number] Order ID:[id number] Reason for Study:CAD cowlitz coronary artery*, Cardiomyopathy History / Clinical:CAD, HTN, DM, a-fib Procedures:CTA Coronary Arteries Race:C SUMMARY: Technique: IV contrast was administered and sequential 0.[address] cuts were obtained through the chest using the Siemens [employer] [place] CT scanner. Post-processing and 3D reconstruction were done using the [employer] workstation. Interactive image viewing and volumetric display and analysis were also performed. 3D coronary artery calcium scoring was done in accordance with a standardized protocol. Calcium Artery Calcium Score (CACS) Result: The total coronary artery calcium score is 708 with calcification noted in the left anterior descending, right and circumflex coronary arteries. CTA RESULTS Left Main: A normal sized 5.0 artery which arises normally from the left sinus of Valsalva and divides into the left anterior descending and circumflex coronary arteries. No significant calcified and non-calcified atherosclerotic plaque is present. Left anterior descending (LAD): A normal sized 4.0mm artery which wraps around the apex and gives off two diagonal branches. Moderatepredominantly calcified atherosclerotic plaque is present in the proximal and mid segments with probably no significant stenosis. The first diagonal is a 1.5 mm artery which has no significant atherosclerotic plaque present. The second diagonal is a 1.5 mm artery which has no significant atherosclerotic plaque present. Left circumflex: A normal sized 3.0 mm non-dominant artery which arises normally from the left main and gives off three major obtuse marginal arteries before terminating in the AV groove. Mild-moderate predominantly calcified atherosclerotic plaque is present in the proximal and mid segments with but without significant stenosis in the proximal and mid segments. There is possible mild-moderate (25-50%) stenosis in the distal segment. The first obtuse marginal is a 1.5 mm artery which has mild calcified and non-calcified atherosclerotic plaque present but no significant stenosis. The second obtuse marginal is a 1.5 mm artery which has mild calcified and non-calcified atherosclerotic plaque present but no significant stenosis. Right coronary artery: A normal sized 3.5 mm dominant artery which arises normally from the right sinus of Valsalva and gives off several right ventricular branches, the posterior descending artery and the posterolateral artery. Moderate predominantly calcified atherosclerotic plaque is present in the proximal, mid and distal segments with mild-moderate stenosis (25-50%) in the distal segment. The posterior descending is a 2.0 mm artery which has no significant atherosclerotic plaque present. The posterolateral is a 1.5 mm artery which has no significant atherosclerotic plaque present. Ramus: A 2.0 mm artery which has no significant atherosclerotic plaque present. Stents: None. Bypass Grafts: None. Pulmonary Arteries: The main pulmonary artery is mildly dilated at 3.3 cm but withno proximal thrombus identified. Atrial and Pulmonary Vein Dimensions: Left atrial size (A-P diameter) 4.8 cm. Severely enlarged right atrium. Variant PV anatomy There is no evidence of the left atrial appendage clot. Ventricular Valve Morphology/Function: LV End systolic volume: 211 cc. RV end systolic volume: 250 cc. Aortic valve is tri-leaflet and there is no evidence of stenosis. Mitral valve is normal. Thoracic Aortic Dimensions: No aortic aneurysm or dissection is seen. Aortic root3.9 cm. Sinotubular junction 2.9 cm. Mid ascending aorta 3.2 cm. Descending thoracic aorta 2.6 cm. Pericardium: There is a small anterior and inferoposterior pericardial effusion. Non-Cardiac Findings: Mild emphysematous changes bilaterally. Otherwise limited lung orourke show no other significant abnormalities. CONCLUSION The coronary artery calcium score indicates a severe extent of coronary atherosclerosis. CT coronary angiography shows coronary atherosclerosis with mild-moderate coronary artery stenosis. No evidence of myocardial infarction; most likely non-ischemic cardiomyopathy. Variant PV anatomy There is no evidence of the left atrial appendage clot. Severe biatrial enlargement Severe biventricular enlargement STUDY QUALITY The study quality is good. COMMENTS None. The above report was based on a dedicated Cardiovascular CTA Protocol and interpreted by a Facilities And Grounds Director.Should a more comprehensive assessment of non-cardiovascular findings be desired, please consult a radiologist.These images are available in the [facility] dVisit PACS system. Signed 06/07/2017 04:53 PM Elham Starks MD Procedure Note Interface, Radiology Results In - 06/07/2017 4:54 PM INFORMATION MANAGEMENT MANAGER Nuclear Cardiology and Cardiac CT [address] [place] [address] CTA Coronary Arteries Report Pat.Name: FELA BENZ Pat.ID: [id number] .Date: 06/07/2017 Refer.MD: GENESIS HANSEN MD Exam Time: 1:17:00 PM Study Type:CTA Coronary Arteries Height: 73in Weight: 247.48lb BSA: 2.36 m2 Age: 9 1960,57Y Sex: MALE BP: 98/65 HR: 98 bpm Nuclear Tech:RT Yary(R)(CT) Pat. Stat.:Outpatient CPT - 4: CCTA w Thoracic Aorta (NonCongenital) [id number] Nuclear Event ID:[id number] Order ID: [id number] Reason for Study:CAD cowlitz coronary artery*, Cardiomyopathy History / Clinical:CAD, HTN, DM, a-fib Procedures:CTA Coronary Arteries Race: C SUMMARY: Technique: IV contrast was administered and sequential 0.[address] cuts were obtained through the chest using the Siemens Somatom Force CT scanner. Post-processing and 3D reconstruction were done using the [employer] workstation. Interactive image viewing and volumetric display and analysis were also performed. 3D coronary artery calcium scoring was done in accordance with a standardized protocol. Calcium Artery Calcium Score (CACS) Result: The total coronary artery calcium score is 708 with calcification noted in the left anterior descending, right and circumflex coronary arteries. CTA RESULTS Left Main: A normal sized 5.0 artery which arises normally from the left sinus of Valsalva and divides into the left anterior descending and circumflex coronary arteries. No significant calcified and non-calcified atherosclerotic plaque is present. Left anterior descending (LAD): A normal sized 4.0mm artery which wraps around the apex and gives off two diagonal branches. Moderate predominantly calcified atherosclerotic plaque is present in the proximal and mid segments with probably no significant stenosis. The first diagonal is a 1.5 mm artery which has no significant atherosclerotic plaque present. The second diagonal is a 1.5 mm artery which has no significant atherosclerotic plaque present. Left circumflex: A normal sized 3.0 mm non-dominant artery which arises normally from the left main and gives off three major obtuse marginal arteries before terminating in the AV groove. Mild-moderate predominantly calcified atherosclerotic plaque is present in the proximal and mid segments with but without significant stenosis in the proximal and mid segments. There is possible mild-moderate (25-50%) stenosis in the distal segment. The first obtuse marginal is a 1.5 mm artery which has mild calcified and non-calcified atherosclerotic plaque present but no significant stenosis. The second obtuse marginal is a 1.5 mm artery which has mild calcified and non-calcified atherosclerotic plaque present but no significant stenosis. Right coronary artery: A normal sized 3.5 mm dominant artery which arises normally from the right sinus of Valsalva and gives off several right ventricular branches, the posterior descending artery and the posterolateral artery. Moderate predominantly calcified atherosclerotic plaque is present in the proximal, mid and distal segments with mild-moderate stenosis (25-50%) in the distal segment. The posterior descending is a 2.0 mm artery which has no significant atherosclerotic plaque present. The posterolateral is a 1.5 mm artery which has no significant atherosclerotic plaque present. Ramus: A 2.0 mm artery which has no significant atherosclerotic plaque present. Stents: None. Bypass Grafts: None. Pulmonary Arteries: The main pulmonary artery is mildly dilated at 3.3 cm but with no proximal thrombus identified. Atrial and Pulmonary Vein Dimensions: Left atrial size (A-P diameter) 4.8 cm. Severely enlarged right atrium. Variant PV anatomy There is no evidence of the left atrial appendage clot. Ventricular Valve Morphology/Function: LV End systolic volume: 211 cc. RV end systolic volume: 250 cc. Aortic valve is tri-leaflet and there is no evidence of stenosis. Mitral valve is normal. Thoracic Aortic Dimensions: No aortic aneurysm or dissection is seen. Aortic root 3.9 cm. Sinotubular junction 2.9 cm. Mid ascending aorta 3.2 cm. Descending thoracic aorta 2.6 cm. Pericardium: There is a small anterior and inferoposterior pericardial effusion. Non-Cardiac Findings: Mild emphysematous changes bilaterally. Otherwise limited lung orourke show no other significant abnormalities. CONCLUSION The coronary artery calcium score indicates a severe extent of coronary atherosclerosis. CT coronary angiography shows coronary atherosclerosis with mild-moderate coronary artery stenosis. No evidence of myocardial infarction; most likely non-ischemic cardiomyopathy. Variant PV anatomy There is no evidence of the left atrial appendage clot. Severe biatrial enlargement Severe biventricular enlargement STUDY QUALITY The study quality is good. COMMENTS None. The above report was based on a dedicated Cardiovascular CTA Protocol and interpreted by a Facilities And Grounds Director. Should a more comprehensive assessment of non-cardiovascular findings be desired, please consult a radiologist. These images are available in the [facility] dVisit PACS system. Signed 06/07/2017 04:53 PM Elham Starks MD * Echocardiogram complete w contrast and 3D if needed (05/06/2017 10:45 AM) Specimen Performing Laboratory [facility] [address] [place] [address] Narrative [facility] Echocardiography Report Pat.Name:Carlos Eduardo BENZ.ID:[id number] .Date: 05/06/2017Refer.MD:GENESIS HANSEN MD Exam Time: 9:34:00 AMStudy Type:Routine Echo Height:73inWeight:269lb BSA: 2.44 m2 DOBAge:1960 ,57Y Sex: MALEBP: 118/88 HR:115 bpm Sonogrphr: Hardik Alberts, KEYANACS, RVS Pat. Stat.:OutpatientRoom:[facility] TapeVol: [facility], ICD - 9: I48.0 Study Status:Final Echo Event ID:[id number] Order ID:[id number] Reason for Study:Paroxysmal Atrial Fibrillation, Essential Hypertension Procedures:2D Echo, Colorflow Doppler, Intravenous Definity Contrast Race: SUMMARY: LV EF is severely depressed. RV systolic function is moderately to severely depressed. Moderate functional mitral regurgitation. Estimated PA systolic pressure is 59 mmHg, assuming a mean RAP of 10 mmHg. FINDINGS: LV: LV size is moderately enlarged. LV EF is severely depressed. EstimatedEF is 20-24%. RV: RV size is moderately enlarged. RV systolic function is moderatelyto severely depressed. RV wall motion is hypokinetic. LA: LA volume is severely enlarged. RA: RA volume is mildly enlarged. AO: Aortic root diameter is normal. JACKELIN: No pericardial effusion. AV: Mild calcification of AV leaflets. MV: No structural MV abnormalities noted. Moderate mitral regurgitation. PV: No structural PV abnormalities noted. A trace of pulmonic regurgitation. TV: No structural TV abnormalities noted. A trace of tricuspid regurgitation Other:Estimated PA systolic pressure is 59 mmHg, assuming a mean RAPof 10 mmHg. MEASUREMENTS: 2D Parasternal Long [place] LVOT 2 cmLA Ds 4.4 cm LVIDd6 cmIndex 2.5 cm/m Ao Rtd 3.6 cm Index1.5 cm/m LVIDs5.1 cm LV Sqml100.2 g(122-174) LV%fs 14.9 % LVM Index 120.2 g/m2 IVSd 1.2 cmRWT 0.4 LVPWd1.1 cm LA Sng Plane LA Area 31.3 cm2(8.8-23.4) LA Vol 114.1 ml Index46.7 ml/m LA LngAx 7.3 cm RA Sng Plane RA Area 24.7 cm2(8.3-19.5) RA Vol87.1 ml Index35.7 ml/m RA LngAx 6.1 cm DOPPLER LVOT Stroke Vol LVOT 2 cmLVOT SV 29.5 ml LVOT TVI 9.4 cmLVOT CO 3.2 l/min LVOT Tm224 msecLVOT CI 1.3 l/m/m2 MV PISA MV AliasVel 37 cm/sMV pkVel 430 cm/s MV PISA rad0.4 cmMV ERO 0.1 cm2 MV Flw44.3 cc/sMV RgVol 11.1 cc MA Stroke Vol ann3 cmCO 6.3 l/min TVI8 cmCI 2.6 l/m/m2 Tm 238 msecHR 111 bpm SV56.7 ml WALL MOTION: RESTING WALL MOTION: Basal Inferior, Mid Inferior, Mid Inferolateral, Mid Anterolateral, Apical Inferior, Apical Lateral smith are akinetic.Basal Anterior, Basal Anteroseptal, Basal Inferoseptal, Basal Inferolateral, Basal Anterolateral, Mid Anterior, Mid Anteroseptal, Mid Inferoseptal, Apical Anterior, Apical Septal, Apical smith are hypokinetic. Wall Index=2.4 Signed 05/07/2017 05:44 PM Jossie Reveles M.D. Procedure Note Interface, Radiology Results In - 05/07/2017 5:45 PM CDT [facility] Echocardiography Report Pat.Name: FELA BENZ Pat.ID: [id number] .Date: 05/06/2017 Refer.MD: GENESIS HANSEN MD Exam Time: 9:34:00 AM Study Type:Routine Echo Height: 73in Weight: 269lb BSA: 2.44 m2 Age: 9 1960,57Y Sex: MALE BP: 118/88 HR: 115 bpm Sonogrphr: Hardik Alberts, RDCS, RVS Pat. Stat.:Outpatient Room: [address] Vol: [facility], ICD - 9: I48.0 Study Status:Final Echo Event ID:[id number] Order ID: [id number] Reason for Study:Paroxysmal Atrial Fibrillation, Essential Hypertension Procedures:2D Echo, Colorflow Doppler, Intravenous Definity Contrast Race: SUMMARY: LV EF is severely depressed. RV systolic function is moderately to severely depressed. Moderate functional mitral regurgitation. Estimated PA systolic pressure is 59 mmHg, assuming a mean RAP of 10 mmHg. FINDINGS: LV: LV size is moderately enlarged. LV EF is severely depressed. Estimated EF is 20-24%. RV: RV size is moderately enlarged. RV systolic function is moderately to severely depressed. RV wall motion is hypokinetic. LA: LA volume is severely enlarged. RA: RA volume is mildly enlarged. AO: Aortic root diameter is normal. JACKELIN: No pericardial effusion. AV: Mild calcification of AV leaflets. MV: No structural MV abnormalities noted. Moderate mitral regurgitation. PV: No structural PV abnormalities noted. A trace of pulmonic regurgitation. TV: No structural TV abnormalities noted. A trace of tricuspid regurgitation Other: Estimated PA systolic pressure is 59 mmHg, assuming a mean RAP of 10 mmHg. MEASUREMENTS: 2D Parasternal Long [place] LVOT 2 cm LA Ds 4.4 cm LVIDd 6 cm Index 2.5 cm/m Ao Rtd 3.6 cm Index 1.5 cm/m LVIDs 5.1 cm LV Mass 293.2 g (122-174) LV%fs 14.9 % LVM Index 120.2 g/m2 IVSd 1.2 cm RWT 0.4 LVPWd 1.1 cm LA Sng Plane LA Area 31.3 cm2 (8.8-23.4) LA Vol 114.1 ml Index 46.7 ml/m LA LngAx 7.3 cm RA Sng Plane RA Area 24.7 cm2 (8.3-19.5) RA Vol 87.1 ml Index 35.7 ml/m RA LngAx 6.1 cm DOPPLER LVOT Stroke Vol LVOT 2 cm LVOT SV 29.5 ml LVOT TVI 9.4 cm LVOT CO 3.2 l/min LVOT Tm 224 msec LVOT CI 1.3 l/m/m2 MV PISA MV AliasVel 37 cm/s MV pkVel 430 cm/s MV PISA rad 0.4 cm MV ERO 0.1 cm2 MV Flw 44.3 cc/s MV RgVol 11.1 cc MA Stroke Vol darnell 3 cm CO 6.3 l/min TVI 8 cm CI 2.6 l/m/m2 Tm 238 msec HR 111 bpm SV 56.7 ml WALL MOTION: RESTING WALL MOTION: Basal Inferior, Mid Inferior, Mid Inferolateral, Mid Anterolateral, Apical Inferior, Apical Lateral smith are akinetic. Basal Anterior, Basal Anteroseptal, Basal Inferoseptal, Basal Inferolateral, Basal Anterolateral, Mid Anterior, Mid Anteroseptal, Mid Inferoseptal, Apical Anterior, Apical Septal, Apical smith are hypokinetic. Wall Index=2.4 Signed 05/07/2017 05:44 PM Jossie Reveles M.D. after 12/16/2016 Insurance Payer Benefit Subscriber ID Type Phone Address Plan / Group AETNA AETNA xxxxxxxxxx HMO HMO,POS,EP O, MC/EC Work: [id number] [place] [id number] Home:
== END | disposition home or self-care (01) ==
LOC: OR 08:00
PROVIDERS: ATTEND Internal Medicine Gastroenterology
DX: Z12.11 Encounter for screening for malignant neoplasm of colon (principal); D12.0 Benign neoplasm of cecum; D12.2 Benign neoplasm of ascending colon; D12.3 Benign neoplasm of transverse colon; K62.1 Rectal polyp; K29.50 Unspecified chronic gastritis without bleeding; K22.70 Barrett's esophagus without dysplasia; K25.9 Gastric ulcer, unspecified as acute or chronic, without hemorrhage or perforation; K21.0 Gastro-esophageal reflux disease with esophagitis; K57.30 Diverticulosis of large intestine without perforation or abscess without bleeding; K64.8 Other hemorrhoids; E11.9 Type 2 diabetes mellitus without complications; I25.10 Atherosclerotic heart disease of native coronary artery without angina pectoris; I10 Essential (primary) hypertension; I48.91 Unspecified atrial fibrillation; J45.909 Unspecified asthma, uncomplicated; I25.2 Old myocardial infarction; I45.10 Unspecified right bundle-branch block; N20.0 Calculus of kidney; G47.33 Obstructive sleep apnea (adult) (pediatric); J44.9 Chronic obstructive pulmonary disease, unspecified; Z88.8 Allergy status to other drugs, medicaments and biological substances; Z91.19 Patient's noncompliance with other medical treatment and regimen; Z01.810 Encounter for preprocedural cardiovascular examination; Z01.812 Encounter for preprocedural laboratory examination; Z79.84 Long term (current) use of oral hypoglycemic drugs; Z79.82 Long term (current) use of aspirin; Z68.31 Body mass index [BMI] 31.0-31.9, adult; Z95.810 Presence of automatic (implantable) cardiac defibrillator
CPT/HCPCS: 36415 ×2; 43239; 45384; 45385; 82948; 85025; 93005; J1980; J2250; 45378

== ENCOUNTER → 2018-11-10 | Day surgery (SDC) | payer OTHER ==
[2018-11-07 10:59] LABS: BASOPHILS % 0.6 % (0.0-1.0); EOSINOPHILS # (AUTO) 0.2 (0.0-0.4); EOSINOPHILS % 3.4 % (0.0-6.0); HEMATOCRIT 39.5 % (38.2-49.6); LYMPHOCYTES # (AUTO) 1.2 (1.0-3.2); LYMPHOCYTES % 24.5 % (18.0-39.1); MEAN CORPUSCULAR HEMOGLOBIN 34.4 pg (28-32); MEAN CORPUSCULAR HGB CONC 35.4 g/dL (31-35); MEAN CORPUSCULAR VOLUME 97.1 fL (81-99); MONOCYTES # (AUTO) 0.5 (0.2-0.8); MONOCYTES % 9.7 % (4.4-11.3); NEUTROPHILS # (AUTO) 3.1 (2.1-6.9); NEUTROPHILS % 61.4 % (38.7-80.0); PLATELET COUNT 159 x10e3/uL (140-360); RED BLOOD COUNT 4.07 x10e6/uL (4.3-5.7); RED CELL DISTRIBUTION WIDTH 12.7 % (11.7-14.4)
[~2018-11-10] MED LIST changes: +ACTOS45 MG PO; +ASPIR 8181 MG PO; +DYMISTA NASAL S23 GM; +ENTRESTO PO; +FLAXSEED OIL1000 M1 PO; +FLECTOR1 EACH TOP; +GLUCAGON FOR INJ 1 MG VIAL ONE; -HYOSCYAMINE SULFATE 0.5 MG/ML AMP ONE; +KETAMINE HCL INJ 50 MG/ML 10 ML VIAL ONE; +LIDOCAINE HCL 2% LOCAL INJ 5 ML SDV VIAL INJ ONE; +PROPOFOL IV EMULSION 10 MG/ML 20 ML VIAL ONE; +SM GLUCOSAMINE1 EACH PO
--- OUTSIDE RECORDS SUMMARY | 2018-11-10 05:55 | XMS REPORT | Clinical Summary ---
Author Author [facility] Address Unknown Phone Unavailable Care Team Providers Care Bicycle I Assembler Name Role Phone Christofer Law MD PCP Allergies Comments Active Allergy Reactions Severity Noted Date Empagliflozin Hives High 10/18/2016 Medications End Date Status Medication Sig Dispensed Refills Start Date Active tamsulosin (FLOMAX) 0.4 Take 0.4 mg 0 mg capsule,extended by mouth 2 7 release 24hr (two) times a day. Active montelukast (SINGULAIR) Take 10 mg by 0 10 mg tablet mouth 7 nightly. Active ONETOUCH ULTRA TEST strip 0 test strips 7 Active glipiZIDE (GLUCOTROL) 10 Take 10 mg by 0 09/08/ MG tablet mouth daily. 7 Active PROAIR HFA 90 Inhale 1 puff 0 mcg/actuation inhaler every 4 7 (four) hours as needed. Active BYETTA 10 mcg/dose(250 10 mcg 2 0 10/04/201 mcg/mL) 2.4 mL pen (two) times a 7 injector day before meals. Active fluticasone-vilanterol Inhale 1 0 (BREO ELLIPTA) 200-25 inhalations mcg/dose blister with daily. device powder for inhalation Active loratadine (CLARITIN) 10 Take 10 mg by 0 mg tablet mouth daily. Active pantoprazole (PROTONIX) Take 40 mg by 0 40 MG EC tablet mouth daily. Active levalbuterol (XOPENEX) INAHLE 0 1.25 mg/3 mL nebulizer CONTENTS OF 7 solution 1 VIAL VIA NEBULIZER Q 6 H PRN Active omega-3 acid ethyl esters Take 1 g by 0 (LOVAZA) 1 gram capsule mouth 2 (two) times a day. Active epINEPHrine (EPIPEN) 0.3 0.3 mg as 0 mg/0.3 mL auto-injector needed. 8 Active multivitamin with Take 1 tablet 0 minerals tablet by mouth daily. Active B complex with C#20-folic Take by mouth 0 acid 1 mg capsule daily. Active vitamin E 1000 UNIT Take 1,000 0 capsule Units by mouth daily. Active flaxseed oil oil 0 Active Saccharomyces boulardii Take 250 mg 0 (FLORASTOR) 250 mg by mouth 2 capsule (two) times a day. Active gluc oconnell/chondro oconnell A/vit Take by 0 C/Mn (GLUCOSAMINE 1500 mouth. COMPLEX ORAL) Active pravastatin (PRAVACHOL) Take 1 tablet 90 tablet 3 20 MG tablet (20 mg total) 8 by mouth nightly. Active sacubitril-valsartan Take 1 tablet 180 tablet 3 (ENTRESTO) 24-26 mg by mouth 2 8 tablet per tablet (two) times a day. Active DYMISTA 137-50 mcg/spray SHAKE LQ AND 0 spray,non-aerosol U 1 SPR IEN 8 BID Active aspirin (ECOTRIN) 81 MG Take 81 mg by 0 enteric coated tablet mouth daily. Active pioglitazone (ACTOS) 45 TK 1 TO 2 TS 1 MG tablet PO QD 9 Active spironolactone TAKE 1 TABLET 90 tablet 3 (ALDACTONE) 25 MG tablet DAILY 9 Active carvedilol (COREG) 12.5 TAKE 1 TABLET 180 tablet 3 MG tablet TWICE A DAY 9 Active furosemide (LASIX) 40 mg TAKE 1 TABLET 180 tablet 3 tablet TWICE A DAY 9 05/07/2018 Discontinued fluticasone (FLONASE) 50 2 sprays by 0 mcg/actuation nasal spray Each Nare route daily. 09/04/2018 Discontinued aspirin 325 MG tablet Take 325 mg 0 by mouth nightly. 05/07/2018 Discontinued ramipril (ALTACE) 10 MG TAKE 1 90 capsule 3 capsule CAPSULE DAILY 7 12/09/2017 Discontinued pravastatin (PRAVACHOL) Take 20 mg by 0 20 MG tablet mouth nightly. 11/22/2017 acetaminophen (TYLENOL) Take 2 15 tablet 0 04/18/201 325 MG tablet tablets (650 8 mg total) by mouth every 6 (six) hours as needed for moderate pain for up to 30 days. 11/22/2017 metFORMIN XR Take 1 tablet 60 tablet 0 (GLUCOPHAGE-XR) 750 mg 24 (750 mg 8 hr tablet total) by mouth 2 (two) times a day with meals for 30 days. 10/26/2018 Discontinued furosemide (LASIX) 40 mg Take 1 tablet 180 tablet 3 tablet (40 mg total) 8 by mouth 2 (two) times a day. 12/12/2017 Discontinued potassium 99 mg tablet Take 198 mg 0 by mouth daily. 10/14/2018 Discontinued carvedilol (COREG) 12.5 Take 1 tablet 180 tablet 3 MG tablet (12.5 mg 8 total) by mouth 2 (two) times a day. 09/28/2018 Discontinued spironolactone Take 1 tablet 90 tablet 3 (ALDACTONE) 25 MG tablet (25 mg total) 8 by mouth daily. 05/07/2018 Discontinued sacubitril-valsartan Take 1 tablet 180 tablet 3 (ENTRESTO) 24-26 mg by mouth 2 8 tablet per tablet (two) times a day. Active Problems Problem Noted Date Chronic systolic heart failure 11/06/2017 Pre-procedure lab exam 10/16/2017 Overview: Added automatically from request for surgery [id number] Cardiomyopathy 10/16/2017 Overview: Added automatically from request for surgery [id number] Pure hypercholesterolemia 09/11/2017 Overweight 09/11/2017 Biventricular heart failure 05/29/2017 Coronary artery disease involving jamul coronary artery of jamul heart 10/18/2016 without angina pectoris Paroxysmal atrial fibrillation 10/16/2016 Type 2 diabetes mellitus 10/16/2016 Heart disease 10/16/2016 Essential hypertension 10/16/2016 Obstructive sleep apnea 10/16/2016 Myocardial infarction 10/16/2016 Encounters Care Team Description Date Type Specialty Genesis Hansen MD Med Refill 10/26/2018 Refill Cardiology Genesis Hansen MD Med Refill 10/14/2018 Refill Cardiology Genesis Hansen MD Med Refill 09/28/2018 Refill Cardiology Genesis Hansen MD Paroxysmal atrial fibrillation (HCC) (Primary Dx); Overweight; Dilated cardiomyopathy (HCC); Chronic systolic heart failure (HCC) 09/04/2018 Office Visit Cardiology Ken Adam MD Atrial fibrillation (HCC); Cardiomyopathy (HCC) 09/04/2018 Hospital Procedural Cardiology Encounter Provider, MD Antwan 09/04/2018 Orders Only Cardiology Ken Adam MD Atrial fibrillation, unspecified type (HCC); Cardiomyopathy, unspecified type (HCC) 06/05/2018 Hospital Procedural Cardiology Encounter Genesis Hansen MD Paroxysmal atrial fibrillation (HCC) (Primary Dx); Heart disease; Coronary artery disease involving jamul coronary artery of jamul heart without angina pectoris; Chronic systolic heart failure (HCC); Obstructive sleep apnea; Pure hypercholesterolemia 05/07/2018 Office Visit Cardiology Ken Adam MD Cardiomyopathy, unspecified type; Atrial fibrillation, unspecified type 03/05/2018 Hospital Procedural Cardiology Encounter Short, Jai R Med Refill 12/26/2017 Refill Cardiology Short, Jai R Med Refill 12/18/2017 Refill Cardiology Genesis Hansen MD Paroxysmal atrial fibrillation (Primary Dx); Cardiomyopathy, unspecified type; Biventricular heart failure; Dilated cardiomyopathy; Chronic systolic heart failure; Coronary artery disease involving jamul coronary artery of jamul heart without angina pectoris 12/12/2017 Office Visit Cardiology ProviderAntwan MD 12/12/2017 Orders Only Cardiology Short, Jai R Med Refill 12/09/2017 Refill Cardiology Short, Jai R Cardiomyopathy, unspecified type (Primary Dx) 12/06/2017 Orders Only Cardiology Short, Jai R Results 11/27/2017 Telephone Cardiology Short, Jai R Results 11/12/2017 Refill Cardiology after 11/09/2017 Family History Medical History Relation Name Comments Diabetes Brother Heart disease Brother Hypertension Brother Diabetes Father Heart disease Father Hypertension Father Hypertension Mother Relation Name Status Comments Brother Father Mother Social History Date Tobacco Use Types Packs/Day Years Used Former Smoker Cigarettes 1 Smokeless Tobacco: Former Chew Quit: 10/18/2013 User Tobacco Cessation: Ready to Quit: Yes Alcohol Use Drinks/Week oz/Week Comments Yes Sex Assigned at Date Recorded Not on file Industry Job Start Date Occupation Not on file Not on file Not on file Travel End Travel History Travel Start No recent travel history available. Last Filed Vital Signs Time Taken Vital Sign Reading 09/04/2018 2:26 PM [employer]ILROOM SUPER[employer] Blood Pressure 131/62 09/04/2018 2:26 PM MAILROOM SUPERVISOR Pulse 79 - Temperature - - Respiratory Rate - - Oxygen Saturation - - Inhaled Oxygen - Concentration 09/04/2018 2:18 PM MAILROOM SUPERVISOR Weight 118 kg (260 lb) 09/04/2018 2:18 PM MAILROOM SUPERVISOR Height 185.4 cm (6' 1") 09/04/2018 2:18 PM MAILROOM SUPERVISOR Body Mass Index 34.3 Plan of Treatment Care Team Description Date Type Specialty Genesis Hansen MD [address] [address] 04/08/2019 Office Visit Cardiology Health Maintenance Due Date Last Done Comments DIABETIC RETINAL EYE EXAM 1959 DIABETIC FOOT EXAM 1969 URINE MICROALBUMIN 1969 COLON CANCER SCREENING 2009 SHINGLES VACCINES (#1) 2009 INFLUENZA VACCINE 02/05/2019 Implants Device Identifier Shelf Expiration Date Model / Serial / Lot Implanted Type Area Manufactur er 02/27/2019 [id number] / [id number] / [id number] Lead [place] Df4 - [id number] - Cardiac N/A: N/A [facility] [id number] Pacing GUIDANT Implanted: Qty: 1 on 10/22/2017 by Leads or Ken Avila MD Electrodes or Accessorie s 09/26/2019 [id number] / [id number] / [id number] Ingevity Mri Active Fixation Cardiac N/A: N/A [place] Pacing Lead - [id number] - [id number] Pacing SCIENTIFIC Implanted: Qty: 1 on 10/22/2017 by Leads or - Ken Palacios MD Electrodes or Accessorie s [id number] / / Transvenous Icd Vigilant [employer] Df4 Defibrilla N/A: N/A [place] - [id number] ICD SCIENTIFIC Implanted: Qty: 1 on 10/22/2017 by Devices - Ken Palacios MD Procedures Comments Procedure Name Priority Date/Time Associated Diagnosis ECG 12-LEAD Routine 09/04/2018 Paroxysmal atrial 2:33 PM MAILROOM SUPERVISOR fibrillation (HCC) CV PACEMAKER DEFIB ILR Routine 09/04/2018 INTERROGATION CV PACEMAKER DEFIB REMOTE Routine 06/11/2018 Atrial fibrillation, TECH SERVICE 7:32 PM MAILROOM SUPERVISOR unspecified type (HCC) Cardiomyopathy, unspecified type (HCC) ECG 12-LEAD Routine 05/07/2018 Paroxysmal atrial 1:34 PM CDT fibrillation (HCC) CV PACEMAKER DEFIB REMOTE Routine 04/08/2018 Cardiomyopathy, TECH SERVICE 4:17 PM CDT unspecified type (HCC) Atrial fibrillation, unspecified type (HCC) ECHOCARDIOGRAM 2D Routine 12/12/2017 Cardiomyopathy, COMPLETE W MMODE SPECTRAL 5:11 PM CDT unspecified type COLOR DOPPLER ([id number]) ECG 12-LEAD Routine 12/12/2017 Paroxysmal atrial 12:45 PM CDT fibrillation CV PACEMAKER DEFIB ILR Routine 12/12/2017 INTERROGATION BASIC METABOLIC PANEL Routine 12/09/2017 Cardiomyopathy, 8:23 AM CDT unspecified type BASIC METABOLIC PANEL Routine 12/03/2017 Chronic congestive heart 10:53 AM CDT failure, unspecified congestive heart failure type BASIC METABOLIC PANEL Routine 11/25/2017 Essential hypertension 9:34 AM CDT after 11/09/2017 Results * ECG 12 lead (09/04/2018 2:33 PM MAILROOM SUPERVISOR) Only the most recent of 3 results within the time period is included. Ventricular rate 76 [facility] Atrial rate 76 [facility] ND interval 150 [facility] QRSD interval 110 [facility] QT interval 418 [facility] QTC interval 470 [facility] P axis 1 69 [facility] QRS axis 1 83 [facility] T wave axis 54 [facility] EKG impression Normal sinus rhythm-Low [facility] voltage QRS-Incomplete left bundle branch block-Abnormal ECG-In automated comparison with ECG of 07-MAY-2018 13:34,-No significant change was found- Narrative Performed At Performing Organization Address City/State/Zipcode Phone Number [facility] [address] [place] [address] * CV pacemaker defib or ilr interrogation (09/04/2018) Narrative Performed At Performing Organization Address City/[facility] Phone Number [facility] [address] [place] [address] * CV pacemaker defib or ilr interrogation (06/11/2018 7:32 PM MAILROOM SUPERVISOR) Narrative Performed At Performing Organization Address [facility] Phone Number [facility] [address] [place] [address] * Cv pacemaker defib or ilr interrogation (04/08/2018 4:17 PM CDT) Narrative Performed At Performing Organization Address [facility] Phone Number [facility] [address] [place] [address] * Echocardiogram complete w contrast and 3D if needed (12/12/2017 5:11 PM CDT) Narrative Performed At [facility] Echocardiography Report Pat.Name:FELA BENZ [place] [facility] SSDt.ID:[id number] .Date: 12/12/2017 Refer.MD:GENESIS HANSEN MD Exam Time: 4:05:00 PMStudy Type:Routine Echo Height:73inWeight:242lb BSA: 2.34 m2 DOBAge:1960,57Y Sex: MALEBP:117/61 HR:86 bpm Sonogrphr: LIZZ Colbert FASE Pat. Stat.:OutpatientRoom:[place] [address] Study Status:Final Echo Event ID:[id number] Order ID:[id number] Reason for Study:Cardiomyopathy, Coronary Artery Disease Procedures:2D [...] RAPof 5 mmHg. MEASUREMENTS: 2D Parasternal Long [place] LVOT 2.1 cmLA Ds5 cm LVIDd6.2 cmIndex2.6 cm/m Ao An2.1 cm LVIDs5.6 cmAo Rtd 3.6 cm Index1.5 cm/m LV%fs 12.5 % LV Busr628.1 g(122-174) IVSd 0.9 cmRWT0.3 LVPWd1.1 cm LA Sng Plane LA Area [...] Results In - 12/12/2017 5:47 PM CDT [facility] Echocardiography Report Pat.Name: FELA BENZ Pat.ID: [id number] .Date: 12/12/2017 Refer.MD: GENESIS HANSEN MD Exam Time: 4:05:00 PM Study Type:Routine Echo Height: 73in Weight: 242lb BSA: 2.34 m2 Age: 8 1960,57Y Sex: MALE BP: 117/61 HR: 86 bpm Sonogrphr: LIZZ Colbert FASE Pat. Stat.:Outpatient Room: [place] [address] Study Status:Final Echo Event ID:[id number] Order ID: [id number] Reason for Study:Cardiomyopathy, Coronary Artery Disease Procedures:2D [...] of 5 mmHg. MEASUREMENTS: 2D Parasternal [place] LVOT 2.1 cm LA Ds 5 cm [...] Signed 12/12/2017 05:47 PM Joshua Crawford MD Performing Organization Address City/State/Zipcode Phone Number [facility] [address] [place] [address] * CV pacemaker defib or ilr interrogation (12/12/2017) Narrative Performed At * Basic metabolic panel (12/09/2017 8:23 AM CDT) Only the most recent of 3 results within the time period is included. Glucose 130 65 - 139 mg/dL [facility] Comment: [facility] Non-fasting reference interval BUN, whole blood 31 (H) 7 - 25 mg/dL [facility] Creatinine 1.33 0.70 - 1.33 mg/dL [facility] Comment: [facility] For patients >49 years of age, the reference limit for Creatinine is approximately 13% higher for people identified as -Tristanian. EGFR Non-Afr. Tristanian 59 (L) > OR=60 mL/min/1.73m2 [facility] EGFR 68 > OR=60 mL/min/1.73m2 [facility] BUN/creatinine ratio 23 (H) 6 - 22 (calc) Identiv [facility] Sodium 138 135 - 146 mmol/L [facility] Potassium 4.0 3.5 - 5.3 mmol/L [facility] Chloride 95 (L) 98 - 110 mmol/L [facility] CO2 30 20 - 31 mmol/L [facility] Calcium 10.0 8.6 - 10.3 mg/dL [facility] Specimen Blood Narrative Performed At FASTING:NO [facility] FASTING: NO Resulting Agency Comment Performing Organization Information: Site ID: [id number] Name: [facility] Address: [address] [place] [address] Director: Fidelia Mackenzie Performing Organization Address City/[facility] Phone Number [facility] Identiv [facility] [address] [place] [phone] after 11/09/2017 Insurance Payer Benefit Subscriber ID Type Phone Address Plan / Group AETNA AETNA xxxxxxxxxx HMO HMO,POS,EP O, MC/EC Advance Directives Patient has advance care planning documents on file. For more information, star steiner contact: Gian Franco [address] [place] [address]
[2018-11-10 10:15] VITALS: BP 118/82
--- NOTE | 2018-11-10 17:33 | Operative Report ---
DATE OF PROCEDURE: 11/10/2018 SURGEON: Santy Brown MD PROCEDURES: Esophagogastroduodenoscopy with biopsies and colonoscopy with polypectomy. INDICATIONS FOR EGD: History of Garcia's esophagus. INDICATIONS FOR COLONOSCOPY: Surveillance colonoscopy, history of numerous colon polyps. MEDICATION: The patient was done under MAC, please see anesthesiologist's note. PROCEDURE IN DETAIL: With the patient in left lateral decubitus position, a flexible fiberoptic Olympus gastroscope was introduced into the esophagus under direct visualization without any difficulty. There was some patchy erythema noted in distal esophagus. Velvety red mucosa was noted to extend in the 2 cm short-segment from the GE junction proximally and in one approximately extending 1 cm proximal to the segment, so this was a C2M1 Garcia's esophagus. Biopsies were obtained every 2 cm per protocol. The scope was then advanced with ease into the stomach traversing a small sliding hiatal hernia. Mucosa overlying the antrum and the body revealed some patchy erythema and low-grade to moderate edema. Biopsies were obtained and sent to stain for H pylori. Pylorus was of normal contour and shape, it was intubated with ease and the scope was advanced all the way to the second portion of the duodenum. The scope was then withdrawn slowly and mucosa overlying the proximal second portion and duodenal bulb grossly appeared to be within normal limits. Biopsies were obtained to rule out sprue. The scope was then withdrawn back into the stomach and retroflexed mucosa overlying the fundus and cardia appeared to be within normal limits. The scope was then straightened out, it was subsequently withdrawn. The patient tolerated procedure well. IMPRESSION: 1. Mild distal esophagitis. 2. C2M1 Garcia's esophagus, biopsies obtained per protocol. 3. Small sliding hiatal hernia. 4. Gastritis, biopsied. Biopsies sent to stain for H pylori. 5. Rule out sprue. PLAN: Follow up histology. Continue Protonix 40 mg one p.o. q.a.m. a.c. The patient was then turned around after adequate lubrication of the anal canal. Flexible fiberoptic Olympus colonoscope was inserted into the rectum with ease and advanced all the way to the cecum. One polyp was snared from the cecum and site was hemoclipped. One polyp was snared and one polyp was biopsied from the proximal ascending colon and polypectomy site was hemoclipped. Two polyps were snared and two polyps were hot biopsied from the transverse colon. One polyp was snared from the descending colon. Diverticular disease was noted to involve the sigmoid colon. One polyp was hot biopsied from the sigmoid colon. Two polyps were hot biopsied from the rectum. The scope was then retroflexed into the distal rectum and small internal hemorrhoids were noted, none of which were actively bleeding. The scope was then straightened out, it was subsequently withdrawn. The patient tolerated procedure well. IMPRESSION: 1. Cecal polyp snared and polypectomy site hemoclipped. 2. Ascending colon polyps x2, one snared and hemoclipped, one biopsied. 3. Transverse colon polyps x4, two snared and two hot biopsied. 4. Descending colon polyp, snared. 5. Diverticulosis. 6. Sigmoid colon polyps x1, hot biopsied. 7. Rectal polyps x2, hot biopsied. 8. Internal hemorrhoids, none actively bleeding. PLAN: Follow up histology. Initiate high-fiber, low-fat diet. Initiate high-fiber supplement. The patient might benefit from a followup colonoscopy in 1 to 2 years. MD JAY JAY Arora/MARYANA /[id number] cc: Christofer Law
== END | disposition home or self-care (01) ==
LOC: OR 05:52
PROVIDERS: ATTEND Internal Medicine Gastroenterology
DX: K29.50 Unspecified chronic gastritis without bleeding (principal); D12.2 Benign neoplasm of ascending colon; D12.3 Benign neoplasm of transverse colon; K62.1 Rectal polyp; K21.0 Gastro-esophageal reflux disease with esophagitis; K22.70 Barrett's esophagus without dysplasia; K44.9 Diaphragmatic hernia without obstruction or gangrene; K57.30 Diverticulosis of large intestine without perforation or abscess without bleeding; K64.8 Other hemorrhoids; J44.9 Chronic obstructive pulmonary disease, unspecified; I48.91 Unspecified atrial fibrillation; G47.33 Obstructive sleep apnea (adult) (pediatric); I11.0 Hypertensive heart disease with heart failure; I50.9 Heart failure, unspecified; I25.2 Old myocardial infarction; E11.9 Type 2 diabetes mellitus without complications; Z88.8 Allergy status to other drugs, medicaments and biological substances; Z01.810 Encounter for preprocedural cardiovascular examination; Z01.812 Encounter for preprocedural laboratory examination; Z79.82 Long term (current) use of aspirin; Z79.84 Long term (current) use of oral hypoglycemic drugs; Z68.33 Body mass index [BMI] 33.0-33.9, adult; Z95.810 Presence of automatic (implantable) cardiac defibrillator; Z87.891 Personal history of nicotine dependence
CPT/HCPCS: 36415 ×2; 43239; 45384; 45385; 82948; 85025; 93005; J1610; J2001; J2250; J2704; 45378

== ENCOUNTER → 2020-11-08 | Day surgery (SDC) | payer MEDICARE, OTHER ==
[2020-11-03 12:01] LABS: BASOPHILS % 0.6 % (0.0-1.0); EOSINOPHILS # (AUTO) 0.1 (0.0-0.4); EOSINOPHILS % 2.1 % (0.0-6.0); HEMATOCRIT 42.6 % (38.2-49.6); LYMPHOCYTES # (AUTO) 1.1 (1.0-3.2); MEAN CORPUSCULAR HEMOGLOBIN 33.4 pg (28-32); MEAN CORPUSCULAR HGB CONC 35.2 g/dL (31-35); MEAN CORPUSCULAR VOLUME 94.9 fL (81-99); MONOCYTES # (AUTO) 0.6 (0.2-0.8); MONOCYTES % 11.2 % (4.4-11.3); NEUTROPHILS # (AUTO) 3.3 (2.1-6.9); NEUTROPHILS % 63.9 % (38.7-80.0); PLATELET COUNT 185 x10e3/uL (140-360); RED BLOOD COUNT 4.49 x10e6/uL (4.3-5.7); RED CELL DISTRIBUTION WIDTH 13.2 % (11.7-14.4)
[~2020-11-08] MED LIST changes: +APPLE CIDER VI1 EAC1 PO; -FENTANYL CITRATE/PF 100MCG/2 ML INJ ONE; +FLONASE ALLERG9.9 ML INH; -GLUCAGON FOR INJ 1 MG VIAL ONE; +HYOSCYAMINE SULFATE 0.5 MG/ML INJ ONE; -KETAMINE HCL INJ 50 MG/ML 10 ML VIAL ONE; -LIDOCAINE HCL 2% LOCAL INJ 5 ML SDV VIAL INJ ONE; -MIDAZOLAM HCL 2 MG/2 ML VIAL ONE
[2020-11-08 13:30] VITALS: BP 112/77
== END | disposition home or self-care (01) ==
LOC: OR 09:58
PROVIDERS: ATTEND Internal Medicine Gastroenterology
DX: K22.70 Barrett's esophagus without dysplasia (principal); D12.2 Benign neoplasm of ascending colon; K29.70 Gastritis, unspecified, without bleeding; I25.10 Atherosclerotic heart disease of native coronary artery without angina pectoris; G47.33 Obstructive sleep apnea (adult) (pediatric); K20.90 Esophagitis, unspecified without bleeding; K44.9 Diaphragmatic hernia without obstruction or gangrene; K63.5 Polyp of colon; K57.30 Diverticulosis of large intestine without perforation or abscess without bleeding; K64.8 Other hemorrhoids; K21.00 Gastro-esophageal reflux disease with esophagitis, without bleeding; Z68.35 Body mass index [BMI] 35.0-35.9, adult; E11.9 Type 2 diabetes mellitus without complications; I10 Essential (primary) hypertension; N40.0 Benign prostatic hyperplasia without lower urinary tract symptoms; I25.2 Old myocardial infarction; I48.91 Unspecified atrial fibrillation; J45.909 Unspecified asthma, uncomplicated; Z86.010 Personal history of colon polyps; Z01.810 Encounter for preprocedural cardiovascular examination; Z01.812 Encounter for preprocedural laboratory examination; Z20.822 Contact with and (suspected) exposure to COVID-19
CPT/HCPCS: 36415 ×2; 43239; 45380; 45385; 82948; 85025; 93005; J1980; J2704; U0002; 45378; 45384

== ENCOUNTER → 2021-07-31 | Day surgery (SDC) | payer MEDICARE ==
[~2021-07-31] MED LIST changes: +ENTRESTO 24 MG1 EACH PO; -HYOSCYAMINE SULFATE 0.5 MG/ML INJ ONE; +LIDOCAINE HCL 2% LOCAL INJ 5 ML SDV VIAL INJ ONE; +METOCLOPRAMIDE HCL 10 MG/2ML VIAL ONE; +OZEMPIC0.25 MG/0. SC
[2021-07-31 13:10] VITALS: BP 107/72
== END | disposition home or self-care (01) ==
LOC: OR 10:40
PROVIDERS: ATTEND Internal Medicine Gastroenterology
DX: K29.70 Gastritis, unspecified, without bleeding (principal); K31.7 Polyp of stomach and duodenum; K22.70 Barrett's esophagus without dysplasia; K44.9 Diaphragmatic hernia without obstruction or gangrene; K28.9 Gastrojejunal ulcer, unspecified as acute or chronic, without hemorrhage or perforation; K57.90 Diverticulosis of intestine, part unspecified, without perforation or abscess without bleeding; K59.00 Constipation, unspecified; Z86.010 Personal history of colon polyps; K76.0 Fatty (change of) liver, not elsewhere classified; G47.33 Obstructive sleep apnea (adult) (pediatric); D64.9 Anemia, unspecified; J44.9 Chronic obstructive pulmonary disease, unspecified; I25.10 Atherosclerotic heart disease of native coronary artery without angina pectoris; I11.0 Hypertensive heart disease with heart failure; I50.9 Heart failure, unspecified; I48.91 Unspecified atrial fibrillation; I25.2 Old myocardial infarction; E11.9 Type 2 diabetes mellitus without complications; N20.0 Calculus of kidney; M19.90 Unspecified osteoarthritis, unspecified site; H91.90 Unspecified hearing loss, unspecified ear; K81.9 Cholecystitis, unspecified; Z88.8 Allergy status to other drugs, medicaments and biological substances; Z79.84 Long term (current) use of oral hypoglycemic drugs; Z79.82 Long term (current) use of aspirin; Z79.899 Other long term (current) drug therapy; Z68.33 Body mass index [BMI] 33.0-33.9, adult; Z98.61 Coronary angioplasty status; Z95.810 Presence of automatic (implantable) cardiac defibrillator; Z87.891 Personal history of nicotine dependence
CPT/HCPCS: 36415; 43239; 82948; 93005; C9113; J2001; J2704; J2765; U0002

== ENCOUNTER → 2021-08-02 | Outpatient (CLI) | payer MEDICARE ==
[~2021-08-02] MED LIST changes: -LIDOCAINE HCL 2% LOCAL INJ 5 ML SDV VIAL INJ ONE; -METOCLOPRAMIDE HCL 10 MG/2ML VIAL ONE; -PROPOFOL IV EMULSION 10 MG/ML 20 ML VIAL ONE
== END ==
LOC: NM 08:35
PROVIDERS: ATTEND Internal Medicine Gastroenterology
DX: R10.10 Upper abdominal pain, unspecified (principal); K80.80 Other cholelithiasis without obstruction; K76.0 Fatty (change of) liver, not elsewhere classified
CPT/HCPCS: 78227; A9537

== ENCOUNTER → 2024-07-15 | Day surgery (SDC) | payer MEDICARE ==
[2024-07-06 10:49] LABS: BASOPHILS % 0.5 % (0.0-1.0); EOSINOPHILS # (AUTO) 0.1 (0.0-0.4); EOSINOPHILS % 2.1 % (0.0-6.0); HEMOGLOBIN 16.2 g/dL (14.0-18.0); LYMPHOCYTES # (AUTO) 1.5 (1.0-3.2); LYMPHOCYTES % 23.9 % (18.0-39.1); MEAN CORPUSCULAR HEMOGLOBIN 34.4 pg (28-32); MEAN CORPUSCULAR HGB CONC 33.1 g/dL (31-35); MONOCYTES # (AUTO) 0.6 (0.2-0.8); MONOCYTES % 9.4 % (4.4-11.3); NEUTROPHILS # (AUTO) 3.9 (2.1-6.9); NEUTROPHILS % 63.8 % (38.7-80.0); PLATELET COUNT 139 x10e3/uL (140-360); RED BLOOD COUNT 4.71 x10e6/uL (4.3-5.7); RED CELL DISTRIBUTION WIDTH 12.9 % (11.7-14.4); WHITE BLOOD COUNT 6.07 x10e3/uL (4.8-10.8)
[~2024-07-15] MED LIST changes: +ALBUTEROL 90 MCG/ACT INHALER INH ONE; +DEXAMETHASONE SOD PHOS INJ 4 MG/ML SDV ONE; +ENTRESTO 49 MG1 EACH PO; +EPHEDRINE SULFATE INJ 50 MG/ML VIAL ONE; +ESMOLOL HCL 100MG/10ML 10 MG/ML VIAL ONE; +ETOMIDATE 40 MG/ 20ML VIAL IV ONE; +FARXIGA10 MG PO; +FENTANYL CITRATE/PF 100MCG/2 ML INJ ONE; +FISH OIL 1,0001 EAC3 PO; +GLYCOPYRROLATE INJ 0.2 MG/ML VIAL ONE; +HYOSCYAMINE SULFATE 0.5 MG/ML INJ ONE; +LIDOCAINE HCL 2% LOCAL INJ 5 ML SDV VIAL INJ ONE; +METOCLOPRAMIDE HCL 10 MG/2ML VIAL ONE; +METOPROLOL TARTRATE INJ 1 MG/ML VIAL ONE; +MIDAZOLAM HCL 2 MG/2 ML VIAL ONE; +ONDANSETRON HCL INJ 2MG/ML 2ML 2 MG/ML VIAL ONE; +PHENYLEPHRINE HCL 1% 10 MG/ML VIAL ONE; +PROPOFOL IV EMULSION 10 MG/ML 20 ML VIAL ONE; +PROPOFOL IV EMULSION 50 ML IV ONE; +TOPROL XL100 MG PO; +TORSEMIDE20 MG PO; +TRESIBA100 UNIT/1 SQ; +VITAMIN D3125 MCG PO; +VITAMIN E400 UNI1 PO
[2024-07-15] MEDS: LACTATED RINGER'S 1,000 ML ONE (06:51)
[2024-07-15 09:43] VITALS: TEMP 97
[2024-07-15 10:10] VITALS: BP 108/71; PULSE 100; RESP 18; O2SAT 99
== END | disposition home or self-care (01) ==
LOC: OR 06:09
PROVIDERS: ATTEND Internal Medicine Gastroenterology
DX: D12.2 Benign neoplasm of ascending colon (principal); D12.4 Benign neoplasm of descending colon; K29.70 Gastritis, unspecified, without bleeding; K22.70 Barrett's esophagus without dysplasia; K31.89 Other diseases of stomach and duodenum; K26.9 Duodenal ulcer, unspecified as acute or chronic, without hemorrhage or perforation; K44.9 Diaphragmatic hernia without obstruction or gangrene; K57.30 Diverticulosis of large intestine without perforation or abscess without bleeding; K64.8 Other hemorrhoids; R05.3 Chronic cough; I10 Essential (primary) hypertension; E11.9 Type 2 diabetes mellitus without complications; Z88.8 Allergy status to other drugs, medicaments and biological substances; Z01.810 Encounter for preprocedural cardiovascular examination; Z01.812 Encounter for preprocedural laboratory examination; Z79.82 Long term (current) use of aspirin; Z79.4 Long term (current) use of insulin; Z79.85 Long-term (current) use of injectable non-insulin antidiabetic drugs; Z79.84 Long term (current) use of oral hypoglycemic drugs; Z79.899 Other long term (current) drug therapy
CPT/HCPCS: 36415; 43239; 45385; 85025; 93005; J1100; J1980; J2003; J2250; J2371; J2470; J2704 ×2; J2765; J3010; J7121; 45378; 45380; J2405